=== PATIENT | female | born 1980 | race Caucasian/White ===

== ENCOUNTER 2025-02-21 13:44 | Outpatient (AMB) | payer OTHER, SELFPAY ==
--- NOTE | 2025-02-21 14:06 | A.OFFVIS_ITS ---
Vital Signs 02/21/25 14:08 Height 5 ft 3 in Weight 277 lb 2 oz BMI 49.1 Pulse 68 Pulse Source Pulse Oximeter Pulse Oximetry (%) 97 Oxygen Delivery Method Room Air Intake Visit Reasons: ENP - CARMEN Intake Note: Patient presents RADIO REPAIRMAN CARMEN. Loud snoring, witnessed apnea, some orthopnea and migraines. no hx sleep study. Accompanied by: Spouse Allergies nut - unspecified Allergy (Unknown, Verified 02/21/25 14:09) Itching HPI Comments Details: 44 year old female patient here for evaluation of CARMEN she is referred to us by her primary care provider. Gabe her helps with history. She is not sleeping well, wakes up through the night, her notices she pauses for air and gasps. She feels chronically fatigued and snores mildly. She goes to bed at 10pm and wakes up at 6am, with 2-3 arousals, one bathroom break. She will occasionally cry in her sleep, and denies parasomnias. She has bilateral frontal ethmoid sinus headaches, which start in the back of her neck, and radiate to the temporal areas. The pain is a constant throbbing and severe 6-7/10, lingers behind eyes and forehead all day, she takes and Ibuprofen and it improves mildly. She has dizziness,photophobia/ phonophbia, denies auras,triggers such as smells, and denies n/v vertigo. She takes Omeprazole for GERD. She denies RLS symptoms. Memory is stable. 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 She does not drink alcohol, smoke tobacco, vape and or do edibles. [facility] Medical History Headache GERD (gastroesophageal reflux disease) Severe obesity Moderate recurrent major depression Generalized anxiety disorder Surgical History Hx of cholecystectomy Family History Mother AA (alcohol abuse) Father HTN (hypertension) Social History Alcohol intake: former Patient Tobacco Use Status: Never used Tobacco e-Cigarette/Vaping Use: Never Used Physical Exam Vital Signs: Last Vital Signs Pulse 68 02/21/25 14:08 Pulse Ox 97 02/21/25 14:08 Oxygen Delivery Method Room Air 02/21/25 14:08 BMI result Body Mass Index 49.1 Const General: cooperative, comfortable and no acute distress Orientation/consciousness: patient oriented x3 Eyes Pupils: Equal, round and reactive pupils present Neck Neck: Yes full ROM Resp Effort & Inspection: normal respiratory effort and able to speak in complete sentences Neuro General: patient oriented x3 and moves all extremities Cranial nerves: Yes Facial sensation intact/muscles of mastication intact, Yes Equal, round and reactive pupils present, Yes Normal accommodation reflex present, Yes Normal facial strength present, Yes Midline tongue present, Yes Ability to bilaterally rotate head present and Yes Ability to bilaterally elevate shoulders present Cognition (Neuro): normal cognition Gait exam (Neuro): Normal gait present Motor exam (neuro): 5/5 motor strength present throughout and Normal motor muscle tone present throughout Deep tendon reflexes (DTR's): Right triceps reflex intensity grade: 2+, Left triceps reflex intensity grade: 2+, Rt Biceps (C5, C6): 2+, Left biceps reflex intensity grade: 2+, Right brachioradialis reflex intensity grade: 2+, Left brachioradialis reflex intensity grade: 2+, Right patellar reflex intensity grade: 2+, Left patellar reflex intensity grade: 2+, Right ankle reflex intensity grade: 2+ and Left ankle reflex intensity grade: 2+ Psych Appearance: grossly normal Affect: normal affect Thought process: Normal thought process present Thought content: Normal thought content present Assessment & Plan Assessment & Plan (1) Excessive daytime sleepiness: Code(s): G47.19 - Other hypersomnia Category: Medical (2) Bilateral headaches: Comment: sumatriptan 50mg po daily may take one additional tablet if no relieft w/in 2 hours of first dose. Code(s): R51.9 - Headache, unspecified Category: Medical (3) Anxiety: Code(s): F41.9 - Anxiety disorder, unspecified Category: Medical Plan Sleep difficulties HST to r/o CARMEN Headaches Sumatriptan - 50mg po at the onset of headache, may take one additional tablet of 50mg po w/in 2hours if their is no relief with the first dose. Do not exceed more than 100mg po daily. Anxiety continue sertraline 50mg po in the AM as directed by pcp Labs request from [facility] at [facility]. Orders: Orders RT home sleep study Today G47.19 - Other hypersomnia Medications: New sumatriptan succinate take 1 tab at onset of headache; if no relief may repeat 1 tab after at least 2 hrs; max = 4 tabs/24 hr orally; 12 tabs 0RF headaches 1 month MDD 100mg R51.9 - Headache, unspecified Patient Instructions: Sleep Hygiene provided: set a scheduled bedtime and wake time to help regulate the circadian rhythm and balance the release of pituitary hormones. Sleep in a dark room, temperatures below 68 degrees, and no devices n bed. Limit caffeinated products 6 hours prior to bed, and limit fluids 2-4 hours prior to bed. Gentle night yoga, diffusing essential oils, and playing soft music can be relaxing. Preventative migraine therapy CGRP antagonists: Sumatriptan at the acute onset of migraines. Triptans 1 tablets 50mg po at the onset of headache/ migraine. If migraine does not abort, may repeat one more tablet 2 hours later as needed. Do not exceed 2 tablets in a 24 hour period. Anxiety- Sertraline 50mg po daily as directed by pcp. Coding Level of Care Code New Pt Level 4 (09989) Diagnoses Excessive daytime sleepiness G47.19 Bilateral headaches R51.9 Anxiety F41.9 Time Spent (min) 30 Comment evaluation of CARMEN/ migraines Sleep Questionnaire Difficulty falling asleep: Yes Difficulty staying asleep?: Yes (takes melatonin 3mg) Number of arousals: 2-4 Snoring: Yes Witnessed apneas: Yes Gasping arousals: Yes Nocturia: Yes GERD: Yes (Omeprazole) Vivid dreams: No Acting out dreams: No Abnormal behavior in sleep: No Abnormal movements in sleep: No Morning headaches: Yes Excessive daytime sleepiness: Yes Daytime naps: Yes (1-2x week 1-2 hours) Restless legs: No Hallucinations: No Sleep paralysis: No Drop attacks: No Sleep Study: No CPAP: No
[2025-02-21 14:08] VITALS: PULSE 68; O2SAT 97; BMI 49.1
== END 2025-02-21 15:04 | disposition home or self-care (01) ==
LOC: HO.HSMS 13:44
PROVIDERS: Visit Provider Physician Assistant Medical
DX: G47.19 Other hypersomnia (principal); R51.9 Headache, unspecified; F41.9 Anxiety disorder, unspecified
CPT/HCPCS: 99204

== ENCOUNTER → 2025-03-10 15:13 | Outpatient (REF) | payer OTHER, SELFPAY ==
--- OUTSIDE RECORDS SUMMARY | 2025-03-10 15:18 | XMS_ITS | Encounter Summary ---
Author Organization [facility] Address [address] [place] [address] Phone Care Team Providers Care Bird Trapper Name Role Phone Janine Crespo MD Unavailable [phone] Pcp, Unknown Primary Care Provider Unavailabl e Encounter Details Date Type Department Care Team (Late st Contact Info) Description 03/11/2023 Procedure Pass [facility], Ct Scan - [address] [address] Social History Tobacco Use Types Packs/Day Years Used Date Smoking Tobacco: Never Smokeless Tobacco: Never Alcohol Use Standard Drinks/Week Comments No 0 (1 standard drink = 0.6 oz pur e alcohol) Education Answer Date Recorded Are you interested in more education? Not on jessica e 12/06/2022 Are you concerned about learning? Not on file 12/06/2022 No 12/06/2022 No 12/06/2022 Digital Access Answer Date Recorded No 01/06/2023 No 01/06/2023 Reliable internet access at home? Not on file 01/06/2023 Device with a working camera? Not on file Intimate Partner Violence Answer Date R ecorded Are you denied basic needs s uch as food, clothing, or medical care? No 03/11/2023 In the past 12 months have y ou been in a relationship with a person who hurts, threatens, or tries to control you? No 03/11/2023 Are you denied basic needs s uch as food, clothing, or medical care? No 03/11/2023 In the past 12 months have y ou been in a relationship with a person who hurts, threatens, or tries to control you? No 03/11/2023 Comments Unknown Sex and Gender Information Value Date Recorded Sex Assigned at Female 05/27/2018 5:21 PM EDT Legal Sex Female 4:39 PM EST Gender Identity Female 05/27/2018 5:21 PM EDT Sexual Orientation Straight 07/11/2018 11 :43 PM EST documented as of this encounter Functional Status * Calculated C-SSRS Risk Score (Lifetime/Recent) Answer Date of Assessment Author No Risk Indicated 03/11/2023 6:21 AM EDT Ashly Wagoner RN * [place] Suicide Severity Rating Scale (Screener/Recent Self-Report) Question Answer Date of Assessment Author 1. Wish to be (Past 1 Month) No 03/11/2023 6:21 AM SAMANTHAT Sonido Alford RN 2. Non-Specific Active Suicidal Thoughts (Past 1 Month) No 03/11/2023 6:21 AM SAMANTHAT Sonido Alford RN 6. Suicidal Behavior (Lifetime) No 03/11/2023 6:21 AM SAMANTHAT Sonido Alford RN documented as of this encounter Plan of Treatment Not on file documented as of this encounter Visit Diagnoses Not on filedocumented in this encounter Care Teams Bird Trapper Relationship Specialty Start Date End Date Pcp, Unknown PCP - General 03/11/23 Janine Crespo MD [address] [place] [address], [address] [place] [address] [email or web address] Historical LMR Provider 05/27/17 documented as of this encounter Additional Source Comments The information contained in this document represents components of the legal health record. It is not the complete legal health record.[facility]
== END ==
LOC: HO.SL 15:13
PROVIDERS: Visit Provider Physician Assistant Medical
DX: G47.19 Other hypersomnia (principal); R06.83 Snoring
CPT/HCPCS: 95806

== ENCOUNTER → 2025-03-10 15:23 | Outpatient (BNV) | payer OTHER, SELFPAY | PROVIDERS: Visit Provider Psychiatry & Neurology Neurology | DX: G47.19 Other hypersomnia (principal) | CPT/HCPCS: 95806 ==

== ENCOUNTER 2025-04-15 08:21 | Outpatient (AMB) | payer OTHER, SELFPAY ==
--- OUTSIDE RECORDS SUMMARY | 2025-04-15 08:45 | XMS_ITS | Encounter Summary ---
Author Organization [facility] Address [address] [place] [address] Phone Care Team Providers Care Cableway Operator Name Role Phone Janine Crespo MD Unavailable [phone] Pcp, Unknown Primary Care Provider Unavailabl e Encounter Details Date Type Department Care Team (Late st Contact Info) Description 03/11/2023 Procedure Pass [facility], Ct Scan - [address] [address] Social History Tobacco Use Types Packs/Day Years [...] 6:21 AM EDT Ashly Wagoner RN * [place] Suicide Severity Rating Scale (Screener/Recent Self-Report) Question [...] on filedocumented in this encounter Care Teams Cableway Operator Relationship Specialty Start Date End Date Pcp, Unknown PCP - General 03/11/23 Janine Crespo MD [address] [place] [address], [address] [place] [address] [email or web address] Historical LMR Provider 05/27/17 documented as of this encounter Additional Source Comments The information contained in this document represents components of the legal health record. It is not the complete legal health record.[facility]
--- OUTSIDE RECORDS SUMMARY | 2025-04-15 08:45 | XMS_ITS | Clinical Summary ---
Author Organization [facility] Address [address] [place] [address] Phone Care Team Providers Care Auto Tune Up Mechanic Name Role Phone Janine Crespo MD Unavailable [phone] Pcp, Unknown Primary Care Provider Unavailabl e Allergies Active Allergy Reactions Criticality Noted Date Comments Oxycodone-Acetaminophen Dizziness,Nausea and/or Vomiting 03/11/2023 Medications medroxyPROGESTERone (PROVERA) 10 MG tablet Take 1 tablet by mouth daily. Active ibuprofen (ADVIL,MOTRIN) 600 MG tablet 1 tablet Orally every 6 hrs 7 Active cyclobenzaprine (FLEXERIL) 10 MG tablet Take 1 tablet (10 mg total) by mouth 3 (three) times a day as needed for muscle spasms. 20 tablet 8 Active ondansetron (ZOFRAN-ODT) 4 MG disintegrating tablet Take 1 tablet (4 mg total) by mouth every 8 (eight) hours as needed for nausea. 12 tablet 3 Active neomycin-polymyxin B-hydrocortisone (CORTOMYCIN) 3.5-10,000-1 mg/mL-unit/mL-% otic suspension 3 drops by Each Ear route 4 (four) times a day. 10 mL 4 Active Active Problems No known active problems Family History Medical History Relation Comments CV disease Maternal Grandfather 2 Cancer Maternal Grandfather 2 CV disease Paternal Grandfather 2 Relation Status Comments Maternal Grandfather 1 Maternal Grandfather 2 Paternal Grandfather 1 Paternal Grandfather 2 Social History Tobacco Use Types Packs/Day Years Used Date Smoking Tobacco: Never Smokeless Tobacco: Never Tobacco Cessation:Counseling Given: Not Answered Alcohol Use Standard Drinks/Week Comments No 0 [...] Orientation Straight 07/11/2018 11 :43 PM EST Last Filed Vital Signs Vital Sign Reading Time Taken Comments Blood Pressure 142/81 01/18/2024 2:05 PM EDT Pulse 92 01/18/2024 2:05 PM EDT Temperature 37.1 C (98.8 F) 01/18/2024 2:05 PM EDT Respiratory Rate 16 01/18/2024 2:05 PM EDT Oxygen Saturation 96% 01/18/2024 2:05 PM EDT Inhaled Oxygen Concentration - - Weight 122.5 kg (270 lb) 01/18/2024 2:05 PM EDT Height 160 cm (5' 3 ) 01/18/2024 2:05 PM EDT Body Mass Index 47.83 01/18/2024 2:05 PM EDT Plan of Treatment Health Maintenance Due Date Last Done Comments DEPRESSION SCREENING 1993 HEPATITIS C SCREENING 1999 HIV ONE-TIME SCREENING (18-6 5 YEARS) 1999 PAP SMEAR 09/07/2018 09/07/2015 SCREENING FOR DIABETES 05/27/2021 05/27/2018 MAMMOGRAM 2021 Adult Td,Tdap Booster 04/13/2023 04/13/2013 , 12/12/1995, 04/13/1993 COVID-19 VACCINE (3 - 2023-2 5 season) 2024 01/08/2021, 12/11/2020 INFLUENZA VACCINE (#1) 2025 4, 10/19/2013 HIB VACCINES Completed 04/20/1985 SMOKING STATUS SCREENING (On ce After 26 Yrs) Completed 01/18/2024 HEPATITIS A VACCINES Aged Out No long er eligible based on patient's age to complete this topic MENINGOCOCCAL VACCINES (ACWY) Aged Out No longer eligible based on patient's age to complete this topic MENINGOCOCCAL VACCINES (B) Aged Out N o longer eligible based on patient's age to complete this topic PNEUMOCOCCAL VACCINES (0-49 years) Aged Out No longer eligible b ased on patient's age to complete this topic Medical Devices Not on [place] [id number] [facility] [employer]EF[employer] ADMINISTRATORS [facility] [place] [phone] [facility] [place] [employer]MINISTRAT[employer] [facility] ADMINISTRATORS [facility] ADMINISTRATORS Care Teams Auto Tune Up Mechanic Relationship Specialty Start Date End Date Pcp, Unknown PCP - General 03/11/23 Janine Crespo MD [address] [place] [address], [address] [place] [address] [email or web address] Historical LMR Provider 05/27/17 Additional Source Comments The information contained in this document represents components of the legal health record. It is not the complete legal health record.[facility]
--- NOTE | 2025-04-15 11:15 | MHC.OFFVISWM ---
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 Allergies nut - unspecified Allergy (Unknown, Verified 04/15/25 11:16) Itching Medication List - Last Reconciled 04/15/25 by Jacob Spencer MD magnesium 250 mg PO DAILY melatonin 3 mg PO BEDTIME PRN sertraline 50 mg PO DAILY sumatriptan succinate take 1 tab at onset of headache; if no relief may repeat 1 tab after at least 2 hrs; max = 4 tabs/24 hr orally; 1 month MDD 100mg HPI 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: Details: Start time: 11.07am, End time: 11.47am ?I spent 35 minutes speaking with the patient on the phone plus an additional 5 minutes reviewing and updating records for a total of 40 minutes HPI Comments Details: Previous weight loss efforts: self diet, exercise Wakes up: 10am, Sleeps: 2am Breakfast: skips Lunch: more often skips Dinner: 8-9pm (fish, or chicken, burgers, hot dogs) Snacks: 4 times before dinner (chips, salty foods), snacks after dinner once (popcorn, cookies, ice cream) Exercise: none Beverages: Coffee: (1 cup/d with creamer), Tea: Hot tea (1 cup/d plain), Soda: none, Juice: none, ETOH: none PFSH Medical History (Updated 04/15/25 @ 11:19 by Jacob Spencer MD) Insomnia Morbid obesity Headache GERD (gastroesophageal reflux disease) Severe obesity Moderate recurrent major depression Generalized anxiety disorder Surgical History (Updated 03/14/25 @ 14:22 by Soledad Hogan CMA) Hx of breast biopsy Hx of cholecystectomy Family History Mother AA (alcohol abuse) Father HTN (hypertension) Social History Alcohol intake: former Patient Tobacco Use Status: Never used Tobacco e-Cigarette/Vaping Use: Never Used Telehealth Telehealth Telehealth Platform: Telephone Location of provider rendering services: practice address Location of patient: address on file Patient Identification confirmed using: Name, : Yes Telehealth method: voice only Patient verbally consented to treatment: Yes Patient verbally consented to billing insurance company: Yes Patient informed of any privacy concerns related to visit: Yes Minutes spent on Phone/Video with Pt.: 40 Assessment & Plan Assessment & Plan (1) Morbid obesity: Code(s): E66.01 - Morbid (severe) obesity due to excess calories Category: Medical Plan: 1.? Plan for lap sleeve gastrectomy. If diaphragmatic or ventral hernias are present at time of surgery, these will be repaired laparoscopically as well. I emphasized the importance of close follow-up, adherence to instructions and good communication. The surgery does not replace the need to change your lifestlyle which is the cause of the obesity problem. The surgery provides the motivation to try again to change your lifestyle, it reduces the appetite and make the transition to a better lifestyle easier and doubles the amount of weight you would lose compared to doing the lifestyle change without the surgery. You will need to be on a liquid diet with protein shakes for 2 weeks before surgery to maximize weight loss and boost your nutritional status to recover better from surgery and also for the first two weeks after surgery to let the stomach heal before we introduce other foods. After the first 2 weeks we will introduce protein bars and soft foods like scrambled eggs, cottage cheese and yogurt and after the 6th week will introduce meat, fish and cooked vegetables in small amounts. Over time you should be able to eat everything in small amounts. Side effects like nausea, vomiting, heartburn or abdominal pain are not common in the practice unless you are not following in the practice. This operation requires lifetime commitment to following in our practice and communication with me. You will much less weight and experience side effects if you don?t communicate or not following in the practice. Complications are rare and in our practice is about 1/10 of the national average. However, you can develop bleeding that may require transfusion (hasn?t happened for year in the practice), you may from complications (we did not have any deaths in the practice) and infections. Infections are usually a result of breakdown in communication or not understanding or following directions correctly. They are difficult to treat, they can happen during the first 6 weeks, they may require to be in the hospital for weeks or even months, not being able to eat by mouth and you may have drains and surgeries to try and correct the issue. Other risks and complications include possible conversion to an open procedure, leaks, small bowel obstruction, blood clots, cardiac, or pulmonary complications, as group home complications such as ulcers, insufficient weight loss and vitamin deficiencies. 2. Nutritional counseling. Start with one premade PREMIER protein (buy at [employer] or American [employer] Addiction [employer] (ABAM)) shake (8oz of Premier NOT the whole bottle) at 11am-1pm, one protein bar (Fit Crunch protein bar, buy at American [employer] Addiction [employer] (ABAM), or [employer]) at 2pm-4pm, another premade PREMIER protein shake (8oz of Premier NOT the whole bottle) at 5pm-7pm, dinner at 8pm (10 forks of protein and 10 forks of salad/vegetables), another Fit Crunch protein bar at 1pm to midnight and another HALF Fit Crunch protein bar at 1am-2am. So you do 2 protein shakes, 2.5 protein bars and one meal per day. Meal to include lean meat (beef, fish, pork, turkey, chicken), or [place] yogurt, or egg whites, or beans with a salad with olive oil and fruits (berries, pears, apples, kiwi). Avoid salt, breads, potatoes, rice, pasta, desserts. 3. Each shake would be drunk slowly, like coffee in a period of 2 hours. 4. Cut each bar in 4 pieces and eat each piece in 30min ?to make each bar last 2 hours. 5. I emphasized the importance of measuring accurately the food portion and measure it when serving the food in plate 6. The meal portions include 10 full-size forks of meat and 10 full-size forks of salad. You always eat the meat portion but you can replace up to 5 forks for salad/vegetables with rice, potatoes or pasta, or a fruit ?if you like. The less you do it the better weight loss will be. 7. One full-size fork is what it can be scooped on the fork without falling aside and not what can be bit with the fork. Use regular forks like those you find in a typical restaurant. 8.? Please buy the body composition scale we discussed and send me weight measurements as soon as possible and then once a week. Always include your diet and exercise plan. 9. Start walking outside daily, tracking calories with a goal of 300 calories per day, daily. Goal is to burn 2000 calories per week on exercise, which means either 300 calories daily, or 400 calories 5 days per week, or 500 calories 4 days per week, or 650 calories 3 days per week. 10. The best choice would be to purchase a stationary bike at home that can track calories. If you get one, please start stationary bike at a resistance level of 2.0 Increase level by 1.0 every 3 min to a max level of 8.0. Stay at this level for 3 min and then return to level 2.0 and repeat same steps until 300 calories are burned. Goal is to burn 2000 calories per week on exercise 11.?It is important of avoiding and for at least 18 months postoperatively and has been discussed at the infosession. 12. Goal is to lose at least 1.5-2lbs per week 13. Goal to lose 10% of your weight before surgery, which is about 29lbs. Ultimate weight goal: 250lbs before surgery 14. Please follow the diet plan exactly without any change. If you don't like something about the plan or you feel hungry you need to communicate with me so I can help you revise the plan. You should not change the plan yourself 15. To be scheduled for EGD to assess the stomach's anatomy. The possibility of biopsies was discussed. Patient needs to avoid use of NSAIDs and aspirin for 1 week prior to EGD. You must be on liquids only the day before your endoscopy. Risks of perforation and bleeding was discussed with the patient. This will be an outpatient procedure with IV sedation. 16. Please do the following test: Check your heart rate at rest (at your sleep). Walk for exactly one mile distance as fast as you can and check your heart rate again as soon as you complete the mile walk. Text me the heart rate at rest and after the walk and the time in minutes and seconds that took you to complete the mile walk. You can use your smartphone's stopwatch to track accurately the time it took to walk the mile. Orders: Orders Insulin Today E66.01 - Morbid (severe) obesity due to excess calories, K21.9 - Gastro-esophageal reflux disease without esophagitis H Pylori Breath Test Today E66.01 - Morbid (severe) obesity due to excess calories, K21.9 - Gastro-esophageal reflux disease without esophagitis Lipid Panel Today E66.01 - Morbid (severe) obesity due to excess calories, K21.9 - Gastro-esophageal reflux disease without esophagitis IRON PROFILE Today E66.01 - Morbid (severe) obesity due to excess calories, K21.9 - Gastro-esophageal reflux disease without esophagitis Vitamin B12 and Folate Today E66.01 - Morbid (severe) obesity due to excess calories, K21.9 - Gastro-esophageal reflux disease without esophagitis Vitamin B1 Today E66.01 - Morbid (severe) obesity due to excess calories, K21.9 - Gastro-esophageal reflux disease without esophagitis Vitamin D 25-OH Total Today E66.01 - Morbid (severe) obesity due to excess calories, K21.9 - Gastro-esophageal reflux disease without esophagitis XR chest 2V Today E66.01 - Morbid (severe) obesity due to excess calories, K21.9 - Gastro-esophageal reflux disease without esophagitis Hemoglobin A1c Today E66.01 - Morbid (severe) obesity due to excess calories, K21.9 - Gastro-esophageal reflux disease without esophagitis Complete Blood Count Auto Diff Today E66.01 - Morbid (severe) obesity due to excess calories, K21.9 - Gastro-esophageal reflux disease without esophagitis Comprehensive Met. Panel Today E66.01 - Morbid (severe) obesity due to excess calories, K21.9 - Gastro-esophageal reflux disease without esophagitis Zinc Today E66.01 - Morbid (severe) obesity due to excess calories, K21.9 - Gastro-esophageal reflux disease without esophagitis C Reactive Protein Today E66.01 - Morbid (severe) obesity due to excess calories, K21.9 - Gastro-esophageal reflux disease without esophagitis Vitamin A Today E66.01 - Morbid (severe) obesity due to excess calories, K21.9 - Gastro-esophageal reflux disease without esophagitis TSH reflex Free T4 Today E66.01 - Morbid (severe) obesity due to excess calories, K21.9 - Gastro-esophageal reflux disease without esophagitis Ferritin Today E66.01 - Morbid (severe) obesity due to excess calories, K21.9 - Gastro-esophageal reflux disease without esophagitis US abdomen comp w elastography Today E66.01 - Morbid (severe) obesity due to excess calories, K21.9 - Gastro-esophageal reflux disease without esophagitis ECG 12 lead EKG Today E66.01 - Morbid (severe) obesity due to excess calories, K21.9 - Gastro-esophageal reflux disease without esophagitis FL upper GI w air Today E66.01 - Morbid (severe) obesity due to excess calories, K21.9 - Gastro-esophageal reflux disease without esophagitis Referrals Behavioral Health Referral E66.01 - Morbid (severe) obesity due to excess calories, K21.9 - Gastro-esophageal reflux disease without esophagitis Nutrition/Dietitian Referral E66.01 - Morbid (severe) obesity due to excess calories, K21.9 - Gastro-esophageal reflux disease without esophagitis
[2025-04-15 11:26] VITALS: BMI 49.5
== END 2025-04-15 11:48 | disposition home or self-care (01) ==
LOC: HO.HBS 08:21
PROVIDERS: Visit Provider Surgery
DX: E66.01 Morbid (severe) obesity due to excess calories (principal); Z68.42 Body mass index [BMI] 45.0-49.9, adult
CPT/HCPCS: 99203

== ENCOUNTER → 2025-04-15 08:21 | Outpatient (BNVA) | payer OTHER, SELFPAY | PROVIDERS: Visit Provider Surgery | DX: E66.01 Morbid (severe) obesity due to excess calories (principal); Z68.42 Body mass index [BMI] 45.0-49.9, adult; K21.9 Gastro-esophageal reflux disease without esophagitis ==

== ENCOUNTER 2025-04-19 12:13 | Outpatient (REF) | payer OTHER, SELFPAY ==
--- NOTE | ~2025-04-19 | XR_ITS ---
EXAMINATION: XR CHEST 2 VIEWS HISTORY: E66.01 - Morbid (severe) obesity due to excess calories COMPARISON: There are no prior studies available for comparison. FINDINGS: PA and lateral views of the chest are submitted. The lungs are expanded and clear. There is no pleural effusion, pneumothorax, or pulmonary vascular congestion. The heart is normal in size. There is mild degenerative disc disease of the spine. XR/XR chest 2V IMPRESSION: Clear lungs. Electronically signed by: El Galan MD 04/19/2025 01:13 PM EDT
--- NOTE | 2025-04-19 12:39 | ECG_ITS ---
Test Reason : MORBID OBESITY Blood Pressure : */* mmHG Vent. Rate : 63 BPM Atrial Rate : 63 BPM P-R Int : 138 ms QRS Dur : 82 ms QT Int : 402 ms P-R-T Axes : 20 46 51 degrees QTcB Int : 411 ms Normal sinus rhythm Normal ECG No previous ECGs available Referred By: Jacob Spencer Electronically Signed By: ANIBAL DAVIS MD
[2025-04-19 12:43] LABS: MANUAL DIFF FLAG NO
[2025-04-19 12:55] LABS: Hematocrit 44.2 % (37.0-47.0); Hemoglobin 14.7 g/dl (12.0-16.0); Imm Gran Abs Auto 0.04 X10*3/uL (0.00-0.03); Imm Gran Pct Auto 0.5 % (0.0-0.4); Lymphocytes Absolute Auto 3.4 X10*3/uL (1.2-4.9); Mean Corpuscular HGB Conc 33.3 g/dl (31.0-35.0); Mean Corpuscular Hemoglobin 29.9 pg (27.0-33.0); Mean Corpuscular Volume 90.0 fL (80.0-98.0); NRBC Abs Auto 0.000 X10*3/uL (0.0-0.012); NRBC Pct Auto 0.0 /100WBC (0.0-0.2); Platelet Count 422 X10*3/uL (160-400); Red Blood Count 4.91 X10*6/uL (4.20-5.50); White Blood Count 8.4 X10*3/uL (4.8-10.8)
[2025-04-19 12:58] LABS: Hemoglobin A1C 145.4138 umol/L; Total Hemoglobin (HGBA1C) 3656.0531 umol/L
[2025-04-19 13:27] LABS: Alanine Aminotransferase 31 U/L (0-31); Albumin Level 4.6 g/dL (3.5-5.0); Alkaline Phosphatase 91 U/L (39-117); Anion Gap 13 (12-20); Aspartate Amino Transferase 34 U/L (5-31); Blood Urea Nitrogen 20 mg/dL (9-16); Calcium 9.2 mg/dL (8.4-10.2); Carbon Dioxide 22 mmol/L (22-29); Chloride 109 mmol/L (96-108); Cholesterol 200 mg/dL (<200); Estimated Glomerular Filt Rate > 60; HDL Cholesterol 39 mg/dL (>40); Iron 91 mcg/dL (30-160); Percent Iron Saturation 34 % (15-50); Potassium 4.6 mmol/L (3.3-5.1); Sodium 139 mmol/L (135-145); Total Iron Binding Capacity 264 mcg/dL (228-428); Total Protein 7.6 g/dL (6.5-8.0); Triglycerides 151 mg/dL (<150); Unsaturated Iron Binding 173 ug/dL
[2025-04-19 13:57] LABS: Folate 14.1 ng/mL (> or = 4.0); Vitamin B12 406 pg/mL (200-900)
[2025-04-19 14:17] LABS: Ferritin 288 ng/mL (10-250)
--- OUTSIDE RECORDS SUMMARY | 2025-04-19 14:40 | XMS_ITS | Clinical Summary ---
Author Organization [facility] Address [address] [place] [address] Phone Care Team Providers Care Hand Inspector Name Role Phone Janine Crespo MD Unavailable [phone] Pcp, Unknown Primary Care Provider Unavailabl e [...] topic Medical Devices Not on [place] [id number] [facility] [employer] ADMIN[employer]ATORS [facility] [place] [address] [facility] [place] [employer] ADMINISTRATORS [employer] [facility] ADMINISTRATORS [facility] ADMINISTRATORS Care Teams Hand Inspector Relationship Specialty Start Date End Date Pcp, Unknown PCP - General 03/11/23 Janine Crespo MD [address] [place] [address], [address] [place] [address] [email or web address] Historical LMR Provider 05/27/17 Additional Source Comments The information contained in this document represents components of the legal health record. It is not the complete legal health record.[facility] Case
--- OUTSIDE RECORDS SUMMARY | 2025-04-19 14:40 | XMS_ITS | Encounter Summary ---
Author Organization [facility] Address [address] [place] [id number] Phone Care Team Providers Care Production Staff Worker Name Role Phone Janine Crespo MD Unavailable [phone] Pcp, Unknown Primary Care Provider Unavailabl e Encounter Details Date Type Department Care Team (Late st Contact Info) Description 03/11/2023 Procedure Pass [facility], Ct Scan - [address] [address] Social History Tobacco Use Types Packs/Day Years [...] 6:21 AM EDT Ashly Wagoner RN * [place] Suicide Severity Rating Scale (Screener/Recent Self-Report) Question [...] on filedocumented in this encounter Care Teams Production Staff Worker Relationship Specialty Start Date End Date Pcp, Unknown PCP - General 03/11/23 Janine Crespo MD [address] [place] [address], [address] [place] [address] [email or web address] Historical LMR Provider 05/27/17 documented as of this encounter Additional Source Comments The information contained in this document represents components of the legal health record. It is not the complete legal health record.[facility]
== END 2025-04-19 12:14 | disposition home or self-care (01) ==
LOC: HO.XRAY 12:13
PROVIDERS: PCP Nurse Practitioner Family; Visit Provider Surgery
DX: E66.01 Morbid (severe) obesity due to excess calories (principal); K21.9 Gastro-esophageal reflux disease without esophagitis; Z13.1 Encounter for screening for diabetes mellitus; Z13.0 Encounter for screening for diseases of the blood and blood-forming organs and certain disorders involving the immune mechanism; Z13.29 Encounter for screening for other suspected endocrine disorder; Z13.21 Encounter for screening for nutritional disorder
CPT/HCPCS: 36415; 71046; 80053; 80061; 82306; 82607; 82728; 82746; 83036; 83525; 83540; 84425; 84443; 84590; 84630; 85025; 86140; 93005

== ENCOUNTER → 2025-04-19 12:39 | Outpatient (BNV) | payer OTHER, SELFPAY | PROVIDERS: PCP Nurse Practitioner Family; Visit Provider Internal Medicine Cardiovascular Disease | DX: E66.01 Morbid (severe) obesity due to excess calories (principal) | CPT/HCPCS: 93010 ==

== ENCOUNTER → 2025-04-19 12:48 | Outpatient (BNV) | payer OTHER, SELFPAY | PROVIDERS: PCP Nurse Practitioner Family; Visit Provider Radiology Diagnostic Radiology | DX: E66.01 Morbid (severe) obesity due to excess calories (principal) | CPT/HCPCS: 71046 ==

== ENCOUNTER 2025-04-25 09:01 | Day surgery (SDC) | payer OTHER, SELFPAY ==
--- NOTE | 2025-04-21 15:39 | HO.ANESPROP2 ---
Documented by User: Lucy Rome NP 04/21/25 15:40 HPI - Anesthesia Eval Consult details Narrative: 44yo F for Upper Endoscopy BMI 49 PMFSH Active Problems Active Problems: All Active Problems Insomnia (Acute) GERD (gastroesophageal reflux disease) (Acute) Morbid obesity (Acute) Anxiety (Acute) Excessive daytime sleepiness (Acute) Bilateral headaches (Acute) Past Medical History Medical History Insomnia Morbid obesity Headache GERD (gastroesophageal reflux disease) Severe obesity Moderate recurrent major depression Generalized anxiety disorder Family History Family History Mother AA (alcohol abuse) Father HTN (hypertension) Surgical History Surgical History Hx of breast biopsy Hx of cholecystectomy Social History Social History Alcohol intake: former Patient Tobacco Use Status: Never used Tobacco e-Cigarette/Vaping Use: Never Used Advance Directives: No Advance Directives Information Provided: Yes Meds Allergies Allergy/AdvReac Type Severity Reaction Status Date / Time nut - unspecified Allergy Unknown Itching Verified 04/25/25 09:06 Home Medications ?Medication ?Instructions ?Recorded ?Confirmed ?Last Taken ?Type sertraline 50 mg tablet 50 mg PO DAILY 02/14/25 04/25/25 Unknown History magnesium 250 mg tablet 250 mg PO DAILY 03/14/25 04/25/25 Unknown History melatonin 3 mg capsule 3 mg PO BEDTIME PRN Sleep 03/14/25 04/25/25 Unknown History Assessment and Plan Assessment Anesthesia Assessment: Chart Reviewed Documented by User: Sara Du MD 04/25/25 09:12 PMFSH Past Medical History Medical History Insomnia Morbid obesity Headache GERD (gastroesophageal reflux disease) Severe obesity Moderate recurrent major depression Generalized anxiety disorder Family History Family History Mother AA (alcohol abuse) Father HTN (hypertension) Family history of problems with anesthesia: No Surgical History Surgical History Hx of breast biopsy Hx of cholecystectomy History of Problems with Anesthesia: No Social History Social History Alcohol intake: former Patient Tobacco Use Status: Never used Tobacco e-Cigarette/Vaping Use: Never Used Advance Directives: No Advance Directives Information Provided: Yes Meds Allergies Allergy/AdvReac Type Severity Reaction Status Date / Time nut - unspecified Allergy Unknown Itching Verified 04/25/25 09:06 Home Medications ?Medication ?Instructions ?Recorded ?Confirmed ?Last Taken ?Type sertraline 50 mg tablet 50 mg PO DAILY 02/14/25 04/25/25 Unknown History magnesium 250 mg tablet 250 mg PO DAILY 03/14/25 04/25/25 Unknown History melatonin 3 mg capsule 3 mg PO BEDTIME PRN Sleep 03/14/25 04/25/25 Unknown History Exam Airway Mallampati Class: II TM Dist: >3cm Neck ROM: Full Heart: rrr Lungs: cta Assessment and Plan Assessment Anesthesia Assessment: Anesthesia Plan Discussed Final Anesthetic Review Family History of Problems with Anesthesia: No History of Problems with Anesthesia: No NPO: Yes ASA Class: III Final Preanesthetic Review: No Changes in Pt Med Stat, Meds/Allgs Chart Reviewed and Consent Obtained/Reviewed Patient Risk: Intermediate Procedure Risk: Intermediate Anesthetic Plan Anesthetic Plan: MAC: Disposition: Standard PACU
[2025-04-25 09:12] VITALS: BMI 47.7
[2025-04-25 09:19] VITALS: BP 142/76; PULSE 77; RESP 14; TEMP 36.5; O2SAT 95
[2025-04-25] MEDS: Lactated Ringers 1,000 ML 80 ML IVCONT (09:28)
--- NOTE | 2025-04-25 09:34 | P.HPSUR_ITS ---
Pre-Procedural Eval Section A - 24 Hr Update-Section A only Date of Service: 04/25/25 The patient is an INPATIENT: No The patient has been examined within 24 hours of the surgical procedure. The History & Physical has been completed within 30 days and I have reviewed it.: Yes Section B - Complete if H&P > 30 days Chief Complaint: Morbid (severe) obesity due to excess calories Details of Present Illness: GERD Relevant Family History (Specify if Yes): No Relevant Social History: None Present Medications: None Medical History: No relevant PMH History of Previous Operations: No relevant previous surgery Allergies: Allergies Allergy/AdvReac Type Severity Reaction Status Date / Time nut - unspecified Allergy Unknown Itching Verified 04/25/25 09:06 Review of Systems Sugical H&P ROS: Negative: Constitution, Cardiovascular, Respiratory, Neurological, Psychiatric, Hem-Onc, Allergic/Immunologic, Gastrointestinal, Genitourinary, Musculoskeletal, Integumentary, Endocrine and Eyes/Ears/No se/Throat Exam Surgical H&P Exam: Normal: HEENT, Normal: Heart, Normal: Lungs, Normal: Extremities, Normal: Abdomen, Normal: Skin and Normal: Neurological Plan Diagnosis/Plan: Unchanged (EGD to assess etiology of GERD. Risks of bleeding and perforation were discussed with the patient and she is in agreement with the plan.) I have reviewed the history and physical and performed a pertinent physical examination on my patient. No changes have occurred unless specified. Time Spent With Patient Time: Total time managing care of this patient today ____ minutes.
--- NOTE | 2025-04-25 09:35 | P.BOP_ITS ---
Brief Operative Note Date of Service: 04/25/25 Pre-op diagnosis: GERD Post-op diagnosis: same Procedure: PROCEDURE DATE: 04/25/2025 PREOPERATIVE DIAGNOSIS: GERD POSTOPERATIVE DIAGNOSIS: ?Same as above.1) Esophagitis, 2) moderate size fixed diaphragmatic hernia PROCEDURE: [id number] with biopsies Surgeon: ?Juanjose Spencer M.D.. Ph.D. Software Tools Engineer: None ? Anesthesia: IV sedation Estimated blood loss: ?Minimal FINDINGS AND PROCEDURE: ? OPERATIVE INDICATIONS: ?The patient is a 44 year old female known to me who is interested in bariatric surgery. The patient has GERD. Based on this information I recommended an upper endoscopy to evaluate the patient's symptoms. Risks and complications of the surgery were discussed with the patient in advance particularly the possibility of perforation or bleeding that may require surgical intervention. The patient understood the risks and was in agreement with the plan. ? PROCEDURE: After informed consent was obtained by the patient, the patient was ?transferred to the Operating Room and was placed in the supine position.? After successful induction of IV sedation, a mouth block was inserted and the patient was placed in the left lateral decubitus position. An upper endoscopy was performed next, the oropharynx and esophagus appeared within the normal limits. There was 3-4cm fixed hiatal hernia. The z-line was irregular with tongues of gastric mucosa protruding into the esophagus. Two biopsies were obtained from the distal esophagus 2-3 cm proximal to the GE junction and two additional biopsies from the GE junction. The stomach was entered and it appeared to be of normal size. There was no gastritis. There was no stricture or ulcer. A biopsy was obtained from the gastric fundus and the antrum. No significant bleeding was noted from any of the biopsy sites. Retroflexion of the scope confirmed the presence of a diaphragmatic hernia. The scope was then advanced into the duodenum which appeared to be normal as well. At that point the duodenum ?and the stomach were decompressed and the scope was withdrawn from the patient's mouth. The patient extubated and was transferred in stable condition to the Recovery Room for further care. I was present and performed all steps of the procedure. There were no residents to assist with this case. Juanjose Spencer M.D., Ph.D. Surgeon: Jacob Spencer MD Anesthesia: MAC Was an Software Tools Engineer used for this Procedure?: No Estimated blood loss (mL): 0 IV fluids (mL): 400 Urine output (mL): 0 (No Snell to record output) Pathology: other (1) antrum x1, 2) fundus x1, 3) GE junction x2, 4) distal esophagus x2) Condition: stable Disposition: PACU
[2025-04-25 09:36] LABS: UPreg QC Valid YES
[2025-04-25 10:06] VITALS: BP 98/58; PULSE 93; RESP 18; TEMP 36.2; O2SAT 94
[2025-04-25 10:21] VITALS: BP 105/52; PULSE 80; RESP 18; TEMP 36.5; O2SAT 94
== END 2025-04-25 11:04 | disposition home or self-care (01) ==
PROVIDERS: Nurse Practitioner; PCP Nurse Practitioner Family; Visit Provider Surgery
PROC: 0DJ08ZZ Inspection of Upper Intestinal Tract, Via Natural or Artificial Opening Endoscopic (ICD-10-PCS; CPT 43235; principal; 2025-04-25 12:10)
DX: K21.9 Gastro-esophageal reflux disease without esophagitis (principal); E66.01 Morbid (severe) obesity due to excess calories; Z68.42 Body mass index [BMI] 45.0-49.9, adult; K31.7 Polyp of stomach and duodenum; K44.9 Diaphragmatic hernia without obstruction or gangrene; K20.80 Other esophagitis without bleeding; G47.00 Insomnia, unspecified; F33.1 Major depressive disorder, recurrent, moderate; F41.1 Generalized anxiety disorder; Z79.899 Other long term (current) drug therapy; Z91.018 Allergy to other foods; Z90.49 Acquired absence of other specified parts of digestive tract
CPT/HCPCS: 43239; 81025; 88305; 88313; 88342; J2003; J2704

== ENCOUNTER → 2025-04-25 09:01 | Outpatient (BNV) | payer OTHER, SELFPAY | PROVIDERS: PCP Nurse Practitioner Family; Visit Provider Surgery | DX: K21.9 Gastro-esophageal reflux disease without esophagitis (principal) | CPT/HCPCS: 43239 ==

== ENCOUNTER → 2025-04-29 19:30 | Outpatient (REF) | payer OTHER, SELFPAY ==
--- OUTSIDE RECORDS SUMMARY | 2025-04-29 21:42 | XMS_ITS | Encounter Summary ---
Author Organization [facility] Address [address] [place] [address] Phone Care Team Providers Care Automotive Wholesale Parts Advisor Name Role Phone Janine Crespo MD Unavailable [phone] Pcp, Unknown Primary Care Provider Unavailabl e Encounter Details Date Type Department Care Team (Late st Contact Info) Description 03/11/2023 Procedure Pass [facility], Ct Scan - [address] [address] Social History Tobacco Use Types Packs/Day Years [...] 6:21 AM EDT Ashly Wagoner RN * [place] Suicide Severity Rating Scale (Screener/Recent Self-Report) Question [...] on filedocumented in this encounter Care Teams Automotive Wholesale Parts Advisor Relationship Specialty Start Date End Date Pcp, Unknown PCP - General 03/11/23 Janine Crespo MD [address] [place] [address], [address] [place] [address] [email or web address] Historical LMR Provider 05/27/17 documented as of this encounter Additional Source Comments The information contained in this document represents components of the legal health record. It is not the complete legal health record.[facility]
--- OUTSIDE RECORDS SUMMARY | 2025-04-29 21:42 | XMS_ITS | Clinical Summary ---
Author Organization [facility] Address [address] [place] [id number] Phone Care Team Providers Care Chancellor Name Role Phone Janine Crespo MD Unavailable [phone] Pcp, Unknown Primary Care Provider Unavailabl e [...] topic Medical Devices Not on file Insurance [facility] [id number] [facility] B[employer]EF[employer] ADMIN[employer]RATORS [place] [id number] [facility] [employer] [facility] ADMINISTRATORS [facility] ADMINISTRATORS Care Teams Chancellor Relationship Specialty Start Date End Date Pcp, Unknown PCP - General 03/11/23 Janine Crespo MD [address] [place] [address], [address] [place] [address] [email or web address] Historical LMR Provider 05/27/17 Additional Source Comments The information contained in this document represents components of the legal health record. It is not the complete legal health record.[facility] Case
== END ==
LOC: HO.SL 19:30
PROVIDERS: Visit Provider Physician Assistant Medical
DX: G47.19 Other hypersomnia (principal)
CPT/HCPCS: 95810

== ENCOUNTER → 2025-04-29 21:37 | Outpatient (BNV) | payer OTHER, SELFPAY | PROVIDERS: Visit Provider Psychiatry & Neurology Neurology | DX: G47.33 Obstructive sleep apnea (adult) (pediatric) (principal) | CPT/HCPCS: 95810 ==

== ENCOUNTER 2025-06-01 09:31 | Outpatient (AMB) | payer OTHER, SELFPAY ==
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
== END 2025-06-01 11:04 | disposition home or self-care (01) ==
LOC: HO.HBST 09:32
PROVIDERS: Visit Provider Counselor Mental Health
DX: F43.23 Adjustment disorder with mixed anxiety and depressed mood (principal); F43.10 Post-traumatic stress disorder, unspecified; Z71.89 Other specified counseling
CPT/HCPCS: 90791

== ENCOUNTER 2025-06-06 15:26 | Outpatient (AMB) | payer OTHER, SELFPAY ==
[2025-06-06 15:29] VITALS: BP 130/82; PULSE 57; O2SAT 97; BMI 46.6
--- NOTE | 2025-06-06 15:29 | A.OFFVIS_ITS ---
Vital Signs 06/06/25 15:29 Height 5 ft 3 in Weight 263 lb 2 oz BMI 46.6 BP 130/82 Blood Pressure Location Lt brachial Position Sitting Pulse 57 Pulse Source Pulse Oximeter Pulse Oximetry (%) 97 Oxygen Delivery Method Room Air Intake Visit Reasons: 3mnth follow up Intake Note: Patient presents follow up CARMEN/Migraine medication. PSG in chart(AHI-22, CURT- 82%. APAP 5-20cm) Bookkeeping Machine Mechanic Required: No Accompanied by: Spouse Allergies nut - unspecified Allergy (Unknown, Verified 06/06/25 15:36) Itching HPI Comments Details: 44 year old female patient presents for a f/u visit and review of in-lab PSG. Gabe her helps with history. PSG reviewed with pt AHI-22, and oxygen nadirs to 82%. Start APAP [id number] and monitor for compliance. She is not sleeping well, wakes up through the night, her notices she pauses for air and gasps. Has 2 hours of sleep at best. She feels chronically fatigued and snores. She goes to bed at 10pm and wakes up at 6am, with 2-3 arousals and 1-3 bathroom breaks at night. She occasionally cries in her sleep, and denies parasomnias. She has daily headaches bilaterally which start at the frontal ethmoid sinuses, can start in the back of her neck, and radiate to the temporal areas with pressure. She has constant throbbing and severit of 6-7/10, this lingers behind her eyes and forehead all day. She takes an Ibuprofen and it improves mildly. She takes Sumatriptan 50mg and it improves though does not resolve completely. She has photophobia, phonophobia, denies auras, and triggers to smells, she denies dizzines, gait and balance instability, and denies n/v, vertigo. She has GERD which is managed with Omeprazole. She denies RLS symptoms. Memory is stable. Mood is improved with sertraline 25mg po. She had brain fog on the 50mg dose so tapered to 25mg which is better. She does not drink alcohol, smoke tobacco, vape and or do edibles. She is having a bariatric procedure on Jun 14 at [facility] [place] [place]. [facility] Medical History (Updated 06/06/25 @ 22:19 by yEal Dinero PA-C) Insomnia Morbid obesity Headache GERD (gastroesophageal reflux disease) Severe obesity Moderate recurrent major depression Generalized anxiety disorder Surgical History Hx of breast biopsy Hx of cholecystectomy Family History Mother AA (alcohol abuse) Father HTN (hypertension) Social History Are you a primary healthcare prof to a significant other at home: No Do you presently have visiting nurse or other home services: No Alcohol intake: former Patient Tobacco Use Status: Never used Tobacco e-Cigarette/Vaping Use: Never Used Physical Exam Vital Signs: Last Vital Signs Pulse 57 06/06/25 15:29 BP 130/82 06/06/25 15:29 Pulse Ox 97 06/06/25 15:29 Oxygen Delivery Method Room Air 06/06/25 15:29 BMI result Body Mass Index 46.6 Const General: cooperative, comfortable and no acute distress Orientation/consciousness: patient oriented x3 Eyes Pupils: Equal, round and reactive pupils present Neck Neck: Yes full ROM Resp Effort & Inspection: normal respiratory effort and able to speak in complete sentences Neuro General: patient oriented x3 and moves all extremities Cranial nerves: Yes Facial sensation intact/muscles of mastication intact, Yes Equal, round and reactive pupils present, Yes Normal accommodation reflex present, Yes Normal facial strength present, Yes Midline tongue present, Yes Ability to bilaterally rotate head present and Yes Ability to bilaterally elevate shoulders present Cognition (Neuro): normal cognition Gait exam (Neuro): Normal gait present Motor exam (neuro): 5/5 motor strength present throughout and Normal motor muscle tone present throughout Psych Appearance: grossly normal Affect: normal affect Thought process: Normal thought process present Thought content: Normal thought content present Results Reviewed Results Reviewed: PSG reviewed with pt AHI-22, and oxygen nadirs to 82%. Start APAP [id number] and monitor for compliance. Assessment & Plan Assessment & Plan (1) CARMEN on CPAP: Code(s): G47.33 - Obstructive sleep apnea (adult) (pediatric); Z99.89 - Dependence on other enabling machines and devices Category: Medical (2) Excessive daytime sleepiness: Code(s): G47.19 - Other hypersomnia Category: Medical (3) Bilateral headaches: Comment: sumatriptan 50mg po daily may take one additional tablet if no relieft w/in 2 hours of first dose. Code(s): R51.9 - Headache, unspecified Category: Medical (4) Anxiety: Code(s): F41.9 - Anxiety disorder, unspecified Category: Medical (5) Insomnia: Code(s): G47.00 - Insomnia, unspecified Category: Medical Qualifiers: Insomnia type: unspecified Qualified Code(s): G47.00 - Insomnia, unspecified Plan CARMEN - PSG reviewed with pt, she has moderate CARMEN will start her on cpap therapy and monitor for compliance. CPAP order is written today. Headaches Daily, discontinue Ibuprofen and continue sumatriptan 50mg po at the onset of headache, if headache does not resolve may take one additional tablet at 2 hours from the first dose. Do not exceed 200mg po in a 24hour period. Use a migraine cap, keep in freezer, monitor the frequency and severity of headaches will discuss Ubrelvy at next f/u. Obesity BMI is 46.6, upcoming Bariatrics surgery Jun 14 2025. Snoring ENT future consideration for [facility] evalution and or Sleep dentistry if snoring is not improved. Medications: Refilled sumatriptan succinate take 1 tab at onset of headache; if no relief may repeat 1 tab after at least 2 hrs; max = 4 tabs/24 hr orally; 12 tabs 0RF headaches 1 month MDD 100mg R51.9 - Headache, unspecified Patient Instructions: Sleep Hygiene provided: set a scheduled bedtime and wake time to help regulate the circadian rhythm and balance the release of pituitary hormones. Sleep in a dark room, temperatures below 68 degrees, and no devices n bed. Limit caffeinated products 6 hours prior to bed, and limit fluids 2-4 hours prior to bed. Gentle night yoga, diffusing essential oils, and playing soft music can be relaxing. Coding Level of Care Code Est Pt Level 4 (18568) Diagnoses CARMEN on CPAP G47.33; Z99.89 Excessive daytime sleepiness G47.19 Bilateral headaches R51.9 Anxiety F41.9 Insomnia, unspecified type G47.00 Insomnia type: unspecified
--- OUTSIDE RECORDS SUMMARY | 2025-06-06 18:38 | XMS_ITS | Clinical Summary ---
Author Organization [facility] Address [address] [place] [address] Phone Care Team Providers Care Dredge Master Name Role Phone Janine Crespo MD Unavailable [phone] Pcp, Unknown Primary Care Provider Unavailabl e [...] Td,Tdap Booster 04/13/2023 04/13/2013 , 12/12/1995, 04/13/1993 INFLUENZA VACCINE (#1) 2025 4, 10/19/2013 COVID-19 VACCINE (3 - 2024-2 6 season) 2025 01/08/2021, 12/11/2020 HIB VACCINES Completed 04/20/1985 SMOKING STATUS SCREENING [...] topic Medical Devices Not on file [place] [id number] [facility] BENEF[facility] ADMINISTRATORS [facility] [id number] [facility] [employer] ADMINISTRATORS [employer] [facility] ADMINISTRATORS [facility] ADMINISTRATORS Care Teams Dredge Master Relationship Specialty Start Date End Date Pcp, Unknown PCP - General 03/11/23 Janine Crespo MD [address] [place] [address], [address] [place] [address] [email or web address] Historical LMR Provider 05/27/17 Additional Source Comments The information contained in this document represents components of the legal health record. It is not the complete legal health record.[facility]
--- OUTSIDE RECORDS SUMMARY | 2025-06-06 18:38 | XMS_ITS | Encounter Summary ---
Author Organization [facility] Address [address] [place] [id number] Phone Care Team Providers Care Industrial Rehabilitation Consultant Name Role Phone Janine Crespo MD Unavailable [phone] Pcp, Unknown Primary Care Provider Unavailabl e Encounter Details Date Type Department Care Team (Late st Contact Info) Description 03/11/2023 Procedure Pass [facility], Ct Scan - [address] [address] Social History Tobacco Use Types Packs/Day Years [...] 6:21 AM EDT Ashly Wagoner RN * [place] Suicide Severity Rating Scale (Screener/Recent Self-Report) Question [...] on filedocumented in this encounter Care Teams Industrial Rehabilitation Consultant Relationship Specialty Start Date End Date Pcp, Unknown PCP - General 03/11/23 Janine Crespo MD [address] [place] [address], [address] [place] [address] [email or web address] Historical LMR Provider 05/27/17 documented as of this encounter Additional Source Comments The information contained in this document represents components of the legal health record. It is not the complete legal health record.[facility]
== END 2025-06-06 16:28 | disposition home or self-care (01) ==
LOC: HO.HSMS 15:27
PROVIDERS: PCP Nurse Practitioner Family; Visit Provider Physician Assistant Medical
DX: G47.33 Obstructive sleep apnea (adult) (pediatric) (principal); Z99.89 Dependence on other enabling machines and devices; G47.19 Other hypersomnia; R51.9 Headache, unspecified; F41.9 Anxiety disorder, unspecified; G47.00 Insomnia, unspecified
CPT/HCPCS: 99214

== ENCOUNTER 2025-06-07 08:57 | Outpatient (AMB) | payer OTHER, SELFPAY ==
--- OUTSIDE RECORDS SUMMARY | 2025-06-07 09:53 | XMS_ITS | Encounter Summary ---
Author Organization [facility] Address [address] [place] [address] Phone Care Team Providers Care Tankman Name Role Phone Janine Crespo MD Unavailable [phone] Pcp, Unknown Primary Care Provider Unavailabl e Encounter Details Date Type Department Care Team (Late st Contact Info) Description 03/11/2023 Procedure Pass [facility], Ct Scan - [address] [address] Social History Tobacco Use Types Packs/Day Years [...] 6:21 AM EDT Ashly Wagoner RN * [place] Suicide Severity Rating Scale (Screener/Recent Self-Report) Question [...] on filedocumented in this encounter Care Teams Tankman Relationship Specialty Start Date End Date Pcp, Unknown PCP - General 03/11/23 Janine Crespo MD [address] [place] [address], [address] [place] [address] [email or web address] Historical LMR Provider 05/27/17 documented as of this encounter Additional Source Comments The information contained in this document represents components of the legal health record. It is not the complete legal health record.[facility]
--- OUTSIDE RECORDS SUMMARY | 2025-06-07 09:53 | XMS_ITS | Clinical Summary ---
Author Organization [facility] Address [address] [place] [address] Phone Care Team Providers Care Shoe Repairer Helper Name Role Phone Janine Crespo MD Unavailable [phone] Pcp, Unknown Primary Care Provider Unavailabl e [...] topic Medical Devices Not on file Insurance [facility] [place] [id number] [facility] BENEFITS ADMINISTRATORS [facility] [place] [phone] [facility] [employer] ADMINISTRATORS [employer] [facility] ADMINISTRATORS [facility] ADMINISTRATORS Care Teams Shoe Repairer Helper Relationship Specialty Start Date End Date Pcp, Unknown PCP - General 03/11/23 Janine Crespo MD [address] [place] [address], [address] [place] [address] [email or web address] Historical LMR Provider 05/27/17 Additional Source Comments The information contained in this document represents components of the legal health record. It is not the complete legal health record.[facility] Case
--- NOTE | 2025-06-07 14:50 | A.OFFVIS_ITS ---
VS Expanded 06/07/25 14:51 Height 5 ft 3 in Weight 256 lb 6 oz BMI 45.4 Body Fat % 60.7 Body Fat Mass 155.8 Fat Free Mass 100.9 Visceral Fat Rating 26 Body Water % 26.9 Body Water Mass 69 Basal Metabolic Rate/Score 1,334 Intake Visit Reasons: TV Pre Op LSG 06/14/25 Allergies nut - unspecified Allergy (Unknown, Verified 06/07/25 14:50) Itching Medication List - Last Reconciled 06/07/25 by Jacob Spencer MD magnesium 250 mg PO DAILY melatonin 3 mg PO BEDTIME PRN ondansetron 4 mg PO Q12H pantoprazole 40 mg PO DAILY polyethylene glycol 3350 17 grams PO DAILY sertraline 50 mg PO DAILY sucralfate 10 mL PO BID sumatriptan succinate take 1 tab at onset of headache; if no relief may repeat 1 tab after at least 2 hrs; max = 4 tabs/24 hr orally; 1 month MDD 100mg HPI HPI TV Pre Op LSG 06/14/25: Details: Start time: 2.22pm, End time: 2.52pm ?I spent 25 minutes speaking with the patient on the phone plus an additional 5 minutes reviewing and updating records for a total of 30 minutes HPI Comments Details: This is the preoperative appointment for the upcoming sleeve gastrectomy [facility] Medical History (Updated 06/06/25 @ 22:19 by Eyal Dinero PA-C) Insomnia Morbid obesity Headache GERD (gastroesophageal reflux disease) Severe obesity Moderate recurrent major depression Generalized anxiety disorder Surgical History Hx of breast biopsy Hx of cholecystectomy Family History Mother AA (alcohol abuse) Father HTN (hypertension) Social History Are you a primary hearing healthcare practitioner to a significant other at home: No Do you presently have visiting nurse or other home services: No Alcohol intake: former Patient Tobacco Use Status: Never used Tobacco e-Cigarette/Vaping Use: Never Used Telehealth Telehealth Telehealth Platform: Telephone Location of provider rendering services: practice address Location of patient: address on file Patient Identification confirmed using: Name, : Yes Telehealth method: voice only Patient verbally consented to treatment: Yes Patient verbally consented to billing insurance company: Yes Patient informed of any privacy concerns related to visit: Yes Minutes spent on Phone/Video with Pt.: 30 Assessment & Plan Assessment & Plan (1) Morbid obesity: Code(s): E66.01 - Morbid (severe) obesity due to excess calories Category: Medical Plan: 1.?Plan for lap sleeve gastrectomy including upper GI endoscopy. All tests has been completed and reviewed and the patient is cleared for the surgery.? If diaphragmatic or ventral hernias are present at time of surgery, these will be repaired laparoscopically as well.?The surgery does not replace the need to change your lifestlyle which is the cause of the obesity problem. The surgery provides the motivation to try again to change your lifestyle, it reduces the appetite and make the transition to a better lifestyle easier and doubles the amount of weight you would lose compared to doing the lifestyle change without the surgery. You will need to be on a liquid diet with protein shakes for 2 weeks before surgery to maximize weight loss and boost your nutritional status to recover better from surgery and also for the first two weeks after surgery to let the stomach heal before we introduce other foods. After the first 2 weeks we will introduce protein bars and soft foods like scrambled eggs, cottage cheese and yogurt and after the 6th?week will introduce meat, fish and cooked vegetables in small amounts. Over time you should be able to eat everything in small amounts. Side effects like nausea, vomiting, heartburn or abdominal pain are not common in the practice unless you are not following in the practice. This operation requires lifetime commitment to following in our practice and communication with me. You will much less weight and experience side effects if you don?t communicate or not following in the practice. Complications are rare and in our practice is about 1/10 of the national average. However, you can develop bleeding that may require transfusion (hasn?t happened for year in the practice), you may from complications (we did not have any deaths in the practice) and infections. Infections are usually a result of breakdown in communication or not understanding or following directions correctly. They are difficult to treat, they can happen during the first 6 weeks, they may require to be in the hospital for weeks or even months, not being able to eat by mouth and you may have drains and surgeries to try and correct the issue. Other risks and complications include possible conversion to an open procedure, leaks, small bowel obstruction, blood clots, cardiac, or pulmonary complications, as alf complications such as ulcers, insufficient weight loss and vitamin deficiencies.?So far she has proven to be an excellent communicator and very compliant with all our directions accomplishing a great weight loss. I believe that she is an excellent candidate and she is ready. ? 2. Preop prescriptions were provided and explained the purpose of each one. Need to be purchased preop. Start Pantoprazole now as you get it from the pharmacy, 1 pill per day. Sucralfate and Zofran are for after surgery as needed. 3. Bowel prep: please do 7 packets ?of Miralax mixing each one with a an 8oz glass of water, crystal light, gatorade zero, or propel ?on 06/12/25 and the same amount on 06/13/25. The Miralax you begin with one packet at a time in 8oz water or crystal light, gatorade zero, or propel ?as early in the day as you can and you do them back to back until you finish them. Continue the protein shakes during? the bowel prep. 4. Needs to purchase 1oz medicine cups . 5. Needs to purchase Children's liquid Tylenol for postop pain control. 6. Avoid aspirin, motrin, Advil, Aleve, Ibuprofen, Naproxyn. Tylenol is OK. 7. She needs to purchase the Celebrate multivitamins from the hospital's gift shop. 8. Will do basic preop blood work-up any day between Friday06/07/25 and Friday06/10/25 fasting for 12 hours and is scheduled to see the Anesthesiologist prior to the day of surgery. 9. Importance of adherence to postop folllow-up and recommendations was underscored and she understands that. 10. Continue to avoid food and bars and continue with 4 ?PREMIER protein shakes (ONE scoop EACH in 8oz almond milk) at 10am-12pm, 1pm-3pm, 4pm-6pm and 7pm-9pm and one more PREMIER protein shake with TWO scoops in 8oz of almond milk at 10pm to midnight. 11. No soups, broths or V8 12. The patient's?medical?history has been reviewed and they are considered low risk for post op DVT and therefore DVT prophylaxis is not considered necessary. Travel after surgery was reviewed. The patient has not disclosed any travel plans during the first 30 days after surgery and they have been advised that within the first 30 days after surgery any bus, plane, train or car travel over 2 hours in duration is contraindicated due to the possibility of developing blood clots from immobility. Any travel, needs to include periods of ambulation of 10 minutes in duration every 2 hours.? Patient was instructed to discuss any plans for travel during this period with their bariatric surgeon.? 13. Use your CPAP daily if you got it already and bring it to the hospital with your mask 14. Please take at the day of surgery the following medications: NONE 15. Stop any control pills and don't use them for one month after surgery 16. Absolutely no smoking or vaping, or marijuana until the surgery and for at least the first 4 weeks. Only nicotine patches are allowed. 17. Send me weight measurements on Friday06/11/25 and then on Friday06/14/25, the day of surgery before you go to the hospital. 18. Avoid any steroids by mouth for any reason. Let me know if someone prescribes them to you 19. These instructions supersede anything else you read in the handbook, anything you watched in videos or classes or you were told by any other provider. If there is any conflict, you follow the above instructions and nothing else.
[2025-06-07 14:51] VITALS: BMI 45.4
== END 2025-06-07 14:54 | disposition home or self-care (01) ==
LOC: HO.HBS 08:57
PROVIDERS: PCP Nurse Practitioner Family; Visit Provider Surgery
DX: E66.01 Morbid (severe) obesity due to excess calories (principal); Z68.45 Body mass index [BMI] 70 or greater, adult
CPT/HCPCS: 99214

== ENCOUNTER 2025-06-08 08:14 | Outpatient (REF) | payer OTHER, SELFPAY ==
--- NOTE | ~2025-06-08 | US_ITS ---
EXAMINATION: US ABDOMEN COMPLETE WITH LIVER ELASTOGRAPHY HISTORY: E66.01 - Morbid (severe) obesity due to excess calories TECHNIQUE: Real-time grayscale ultrasound imaging of the abdomen was performed and images were reviewed. COMPARISON: There are no prior studies available for comparison. FINDINGS: Liver: The right lobe of the liver measures 20.3 cm in size. The left lobe of the liver measures 14.8 cm in size. The liver demonstrates increased echotexture, consistent with steatosis. No focal mass or intrahepatic biliary ductal dilatation is identified. There is normal hepatopedal flow in the portal vein. Ultrasound elastography of the liver was performed with 10 separate measurements of the liver parenchyma with the patient in the supine position. Measurements were obtained approximately 2 cm below Kiko's capsule and perpendicular to the capsule. The median shear wave velocity is 1.22 m/s. The interquartile range/median (IQR/median) is 0.40. Gallbladder and biliary tree: The gallbladder is surgically absent. The common bile duct is normal in caliber measuring 5 mm. Kidneys: The right kidney measures 12.3 cm in length. The left kidney measures 11.9 cm in length. The kidneys are unremarkable, without evidence of masses, hydronephrosis, or calculi. Pancreas: The pancreatic head, neck, and body are unremarkable. The pancreatic tail is obscured by bowel gas. Spleen: The spleen is normal in size and contour, measuring 10.4 cm in length. Abdominal aorta and inferior vena cava: The visualized portions of the abdominal aorta and inferior vena cava are normal in caliber. There is no free fluid in the abdomen. US/US abdomen comp w elastography IMPRESSION: Hepatomegaly and hepatic steatosis. The median shear wave velocity in the liver is 1.22 m/s, corresponding to a median liver stiffness of 4.50 kPa. The IQR/median value is 0.40. This is indicative of a poor quality data set, and the estimated liver stiffness may be unreliable. Findings are indicative of a normal elastography value with a low likelihood of severe fibrosis or cirrhosis. REFERENCE: Society of Radiologists in Ultrasound Liver Stiffness Thresholds (2019): LIVER STIFFNESS THRESHOLDS: *Shear wave velocity less than 1.3 m/s (Liver Stiffness equal or less than 5 kPa): High probability of being normal. *Shear wave velocity less than 1.7 m/s (Liver Stiffness less than 9 kPa): In the absence of other known clinical signs, rules out compensated advanced chronic liver disease. *Shear wave velocity between 1.7-2.1 m/s (Liver Stiffness 9-13 kPa): Suggestive of compensated advanced chronic liver disease but need further test for confirmation. *Shear wave velocity between 2.1-2.4 m/s (Liver Stiffness 13-17 kPa): Rules in compensated advanced chronic liver disease. *Shear wave velocity greater than 2.4 m/s (Liver Stiffness over 17 kPa): Suggestive of clinically significant portal hypertension. QUALITY OF DATA SET: SIGNIFICANT CHANGE FROM PRIOR EXAM: Significant change if liver stiffness measurement is 10% or greater from prior exam. OTHER CONSIDERATIONS: The stage of liver fibrosis may be overestimated in the setting of acute hepatitis, liver inflammation, elevated liver function tests, hepatic vascular congestion, obstructive cholestasis, non-fasting state, and infiltrative diseases such as amyloidosis and lymphoma. In some patients with NAFLD, the liver stiffness thresholds for compensated advanced chronic liver disease may be lower. In causes other than viral hepatitis and NAFLD, liver stiffness thresholds are not well established. Electronically signed by: El Galan MD 06/08/2025 09:20 AM EDT
== END 2025-06-08 08:15 | disposition home or self-care (01) ==
LOC: HO.US 08:14
PROVIDERS: PCP Nurse Practitioner Family; Visit Provider Surgery
DX: E66.01 Morbid (severe) obesity due to excess calories (principal); K21.9 Gastro-esophageal reflux disease without esophagitis
CPT/HCPCS: 76700; 76981

== ENCOUNTER → 2025-06-08 08:16 | Outpatient (BNV) | payer OTHER, SELFPAY | PROVIDERS: PCP Nurse Practitioner Family; Visit Provider Radiology Diagnostic Radiology | DX: R16.0 Hepatomegaly, not elsewhere classified (principal); K76.0 Fatty (change of) liver, not elsewhere classified; E66.01 Morbid (severe) obesity due to excess calories | CPT/HCPCS: 76700 ==

== ENCOUNTER 2025-06-10 14:51 | Outpatient (REF) | payer OTHER, SELFPAY ==
[2025-06-10 15:15] LABS: MANUAL DIFF FLAG NO
--- OUTSIDE RECORDS SUMMARY | 2025-06-10 15:19 | XMS_ITS | Encounter Summary ---
Author Organization [facility] Address [address] [place] [address] Phone Care Team Providers Care Spray Painter Helper Name Role Phone Janine Crespo MD Unavailable [phone] Pcp, Unknown Primary Care Provider Unavailabl e Encounter Details Date Type Department Care Team (Late st Contact Info) Description 03/11/2023 Procedure Pass [facility], Ct Scan - [address] [address] Social History Tobacco Use Types Packs/Day Years [...] 6:21 AM EDT Ashly Wagoner RN * [place] Suicide Severity Rating Scale (Screener/Recent Self-Report) Question Answer Date of Assessment Author 1. Wish to be (Past 1 Month) No 03/11/2023 6:21 AM SAMANTHAT Sonido Alford RN 2. Non-Specific Active Suicidal Thoughts (Past 1 Month) No 03/11/2023 6:21 AM SAMANTHAT Sonido Alford RN 6. Suicidal Behavior (Lifetime) No 03/11/2023 6:21 AM SAMANTHAT Soniod Alford RN documented as of this encounter Plan of Treatment Not on file documented as of this encounter Visit Diagnoses Not on filedocumented in this encounter Care Teams Spray Painter Helper Relationship Specialty Start Date End Date Pcp, Unknown PCP - General 03/11/23 Janine Crespo MD [address] [place] [address], [address] [place] [address] [email or web address] Historical LMR Provider 05/27/17 documented as of this encounter Additional Source Comments The information contained in this document represents components of the legal health record. It is not the complete legal health record.[facility]
--- OUTSIDE RECORDS SUMMARY | 2025-06-10 15:19 | XMS_ITS | Clinical Summary ---
Author Organization [facility] Address [address] [place] [phone] Phone Care Team Providers Care Claims Coordinator Name Role Phone Janine Crespo MD Unavailable [phone] Pcp, Unknown Primary Care Provider Unavailabl e [...] topic Medical Devices Not on file Insurance [facility] [place] [id number] [facility] BENEFITS ADMINISTRATORS [facility] [address] [facility] [facility] [place] [employer] ADMINISTRATORS [employer] [facility] ADMINISTRATORS [facility] ADMINISTRATORS Care Teams Claims Coordinator Relationship Specialty Start Date End Date Pcp, Unknown PCP - General 03/11/23 Janine Crespo MD [address] [place] [address], [address] [place] [address] [email or web address] Historical LMR Provider 05/27/17 Additional Source Comments The information contained in this document represents components of the legal health record. It is not the complete legal health record.[facility]
[2025-06-10 16:30] LABS: Alanine Aminotransferase 26 U/L (0-31); Albumin Level 4.7 g/dL (3.5-5.0); Alkaline Phosphatase 107 U/L (39-117); Anion Gap 13 (12-20); Aspartate Amino Transferase 26 U/L (5-31); Blood Urea Nitrogen 16 mg/dL (9-16); Calcium 9.7 mg/dL (8.4-10.2); Carbon Dioxide 28 mmol/L (22-29); Chloride 104 mmol/L (96-108); Cholesterol 176 mg/dL (<200); Estimated Glomerular Filt Rate > 60; HDL Cholesterol 35 mg/dL (>40); Potassium 4.8 mmol/L (3.3-5.1); Sodium 140 mmol/L (135-145); Total Protein 7.8 g/dL (6.5-8.0); Triglycerides 151 mg/dL (<150)
[2025-06-10 16:57] LABS: Hematocrit 47.9 % (37.0-47.0); Hemoglobin 15.5 g/dl (12.0-16.0); Imm Gran Abs Auto 0.02 X10*3/uL (0.00-0.03); Imm Gran Pct Auto 0.2 % (0.0-0.4); Lymphocytes Absolute Auto 2.9 X10*3/uL (1.2-4.9); Mean Corpuscular HGB Conc 32.4 g/dl (31.0-35.0); Mean Corpuscular Hemoglobin 29.5 pg (27.0-33.0); Mean Corpuscular Volume 91.2 fL (80.0-98.0); NRBC Abs Auto 0.000 X10*3/uL (0.0-0.012); NRBC Pct Auto 0.0 /100WBC (0.0-0.2); Platelet Count 438 X10*3/uL (160-400); Red Blood Count 5.25 X10*6/uL (4.20-5.50); White Blood Count 8.6 X10*3/uL (4.8-10.8)
[2025-06-10 17:05] LABS: INTERNATIONAL NORM RATIO 1.0 (0.9-1.1); Prothrombin Time 11.6 SEC (10.9-12.4)
[2025-06-10 17:07] LABS: Partial Thromboplastin Time 34.5 SEC (26.7-34.1)
== END 2025-06-10 14:52 | disposition home or self-care (01) ==
LOC: HO.LAB 14:51
PROVIDERS: PCP Nurse Practitioner Family; Visit Provider Surgery
DX: E66.01 Morbid (severe) obesity due to excess calories (principal); Z13.1 Encounter for screening for diabetes mellitus; Z13.29 Encounter for screening for other suspected endocrine disorder
CPT/HCPCS: 36415; 80053; 80061; 83036; 83525; 84443; 85025; 85610; 85730; 86140

== ENCOUNTER 2025-06-14 06:10 | Inpatient (IN) | payer OTHER, SELFPAY ==
--- NOTE | 2025-06-09 14:22 | HO.ANESPROP2 ---
Documented by User: Lucy Rome NP 06/13/25 08:55 HPI - Anesthesia Eval Consult details Narrative: 44yo F for ?Gastrectomy Sleeve,EGD,possible Diaphragmatic Hernia,possible Ventral Hernia,possible Open BMI 46 PMFSH Active Problems Active Problems: All Active Problems (Updated 06/09/25 @ 07:57 by Edwige Esqueda RN) CARMEN on CPAP (Acute) Anxiety (Acute) Excessive daytime sleepiness (Acute) Bilateral headaches (Acute) Insomnia (Acute) GERD (gastroesophageal reflux disease) (Acute) Morbid obesity (Acute) Past Medical History Medical History PTSD (post-traumatic stress disorder) CARMEN (obstructive sleep apnea) Migraines Insomnia Morbid obesity GERD (gastroesophageal reflux disease) Moderate recurrent major depression Generalized anxiety disorder Family History Family History Mother AA (alcohol abuse) Father HTN (hypertension) Family history of problems with anesthesia: No Surgical History Surgical History History of esophagogastroduodenoscopy (EGD) History of endometrial ablation Hx of breast biopsy Hx of cholecystectomy History of Problems with Anesthesia: No Social History Social History Housing Other:: duplex Are you a primary healthcare administrative assistant to a significant other at home: No Do you presently have visiting nurse or other home services: No Alcohol intake: former Patient Tobacco Use Status: Former Tobacco user Tobacco use type: Cigarette Years Smoked: 5 e-Cigarette/Vaping Use: Never Used Use of substances other than those prescribed or required for medical reasons: No Have you been hit, kicked, punched, or otherwise hurt by someone within the past year? If so, by whom?: No Spiritual Healthcare Practices: no Mormonism Healthcare Practices: no Cultural Healthcare Practices: no Are you DNR?: No Advance Directives: No ( primary contact) Advance Directives on File: No Patient : No (had endometrial ablation) FDLMP: ~2017 : No Meds Allergies Allergy/AdvReac Type Severity Reaction Status Date / Time tree nut Allergy Severe Anaphylaxis Verified 06/10/25 10:43 Home Medications ?Medication ?Instructions ?Recorded ?Confirmed ?Last Taken ?Type sertraline 50 mg tablet 50 mg PO DAILY 02/14/25 06/09/25 Unknown History magnesium 250 mg tablet 250 mg PO DAILY 03/14/25 06/09/25 Unknown History melatonin 3 mg capsule 3 mg PO BEDTIME PRN Sleep 03/14/25 06/09/25 Unknown History Exam Pertinent Lab Results Pertinent Lab Results: Lab Results 06/10/25 Range/Units 15:06 Blood Type A Positive Antibody Screen NEGATIVE Laboratory Tests 06/10/25 15:14 WBC 8.6 Hgb 15.5 Hct 47.9 H Plt Count 438 H Sodium 140 Potassium 4.8 Chloride 104 Carbon Dioxide 28 BUN 16 Creatinine 0.76 Narrative Narrative: EKG 04/2025 Vent. Rate : 63 BPM Atrial Rate : 63 BPM P-R Int : 138 ms QRS Dur : 82 ms QT Int : 402 ms P-R-T Axes : 20 46 51 degrees QTcB Int : 411 ms Normal sinus rhythm Normal ECG No previous ECGs available Assessment and Plan Assessment Anesthesia Assessment: Chart Reviewed Final Anesthetic Review Family History of Problems with Anesthesia: No History of Problems with Anesthesia: No Documented by User: Shena Barnes MD 06/14/25 08:19 PMFSH Past Medical History Medical History PTSD (post-traumatic stress disorder) CARMEN (obstructive sleep apnea) Migraines Insomnia Morbid obesity GERD (gastroesophageal reflux disease) Moderate recurrent major depression Generalized anxiety disorder Family History Family History Mother AA (alcohol abuse) Father HTN (hypertension) Surgical History Surgical History History of esophagogastroduodenoscopy (EGD) History of endometrial ablation Hx of breast biopsy Hx of cholecystectomy Social History Social History Housing Other:: duplex Are you a primary healthcare administrative assistant to a significant other at home: No Do you presently have visiting nurse or other home services: No Alcohol intake: former Patient Tobacco Use Status: Former Tobacco user Tobacco use type: Cigarette Years Smoked: 5 e-Cigarette/Vaping Use: Never Used Use of substances other than those prescribed or required for medical reasons: No Have you been hit, kicked, punched, or otherwise hurt by someone within the past year? If so, by whom?: No Spiritual Healthcare Practices: no Mormonism Healthcare Practices: no Cultural Healthcare Practices: no Are you DNR?: No Advance Directives: No ( primary contact) Advance Directives on File: No Patient : No (had endometrial ablation) FDLMP: ~2017 : No Meds Allergies Allergy/AdvReac Type Severity Reaction Status Date / Time tree nut Allergy Severe Anaphylaxis Verified 06/10/25 10:43 Home Medications ?Medication ?Instructions ?Recorded ?Confirmed ?Last Taken ?Type sertraline 50 mg tablet 50 mg PO DAILY 02/14/25 06/09/25 Unknown History magnesium 250 mg tablet 250 mg PO DAILY 03/14/25 06/09/25 Unknown History melatonin 3 mg capsule 3 mg PO BEDTIME PRN Sleep 03/14/25 06/09/25 Unknown History Exam Airway Mallampati Class: III TM Dist: >3cm Neck ROM: Full Loose/Missing/Broken Teeth: No Heart: RRR Lungs: CTA Assessment and Plan Assessment Anesthesia Assessment: Anesthesia Plan Discussed Final Anesthetic Review NPO: Yes ASA Class: III Final Preanesthetic Review: Meds/Allgs Chart Reviewed, Consent Obtained/Reviewed and Anes Risks/Benef Reviewed Patient Risk: Intermediate Procedure Risk: Intermediate Anesthetic Plan Anesthetic Plan: GA Disposition: Standard PACU
[2025-06-10 10:18] VITALS: BMI 44.7
[2025-06-14] VITALS (18 sets, daily range): BP systolic 104–147; BP diastolic 59–88; PULSE 66–90; RESP 13–22; TEMP 36–37.1; O2SAT 91–97; BMI 45.7
--- OUTSIDE RECORDS SUMMARY | 2025-06-14 06:21 | XMS_ITS | Encounter Summary ---
Author Organization [facility] Address [address] [place] [address] Phone Care Team Providers Care Broker Name Role Phone Janine Crespo MD Unavailable [phone] Pcp, Unknown Primary Care Provider Unavailabl e Encounter Details Date Type Department Care Team (Late st Contact Info) Description 03/11/2023 Procedure Pass [facility], Ct Scan - [address] [address] Social History Tobacco Use Types Packs/Day Years [...] 6:21 AM EDT Ashly Wagoner RN * [place] Suicide Severity Rating Scale (Screener/Recent Self-Report) Question [...] on filedocumented in this encounter Care Teams Broker Relationship Specialty Start Date End Date Pcp, Unknown PCP - General 03/11/23 Janine Crespo MD [address] [place] [address], [address] [place] [address] [email or web address] Historical LMR Provider 05/27/17 documented as of this encounter Additional Source Comments The information contained in this document represents components of the legal health record. It is not the complete legal health record.[facility]
--- OUTSIDE RECORDS SUMMARY | 2025-06-14 06:21 | XMS_ITS | Clinical Summary ---
Author Organization [facility] Address [address] [place] [address] Phone Care Team Providers Care Law Librarian Name Role Phone Janine Crespo MD Unavailable [phone] Pcp, Unknown Primary Care Provider Unavailabl e [...] topic Medical Devices Not on file Insurance [facility] [place] [id number] [facility] BENEFITS ADMINISTRATORS [facility] [place] [address] [facility] [place] [facility] [place] [employer] ADMINISTRATORS [employer] [facility] ADMINISTRATORS [facility] ADMINISTRATORS Care Teams Law Librarian Relationship Specialty Start Date End Date Pcp, Unknown PCP - General 03/11/23 Janine Crespo MD [address] [place] [address], [address] [place] [address] [email or web address] Historical LMR Provider 05/27/17 Additional Source Comments The information contained in this document represents components of the legal health record. It is not the complete legal health record.[facility] Case
[2025-06-14] MEDS: Lactated Ringers 1,000 ML 999 ML IV (07:02)
[2025-06-14] MEDS: Aprepitant 32 MG/4.4 ML VIAL IVPUSH (07:03)
[2025-06-14 07:05] LABS: UPreg QC Valid YES
--- NOTE | 2025-06-14 07:19 | PHA.MEDREC ---
Pharmacy Consult ? Medication Reconciliation Pharmacy has reviewed the medication reconciliation done by RN.
--- NOTE | 2025-06-14 07:22 | P.BOP_ITS ---
Brief Operative Note Date of Service: 06/14/25 Pre-op diagnosis: Morbid obesity with comorbidities (see below) Post-op diagnosis: same Procedure: INITIAL PATIENT BMI ON PRESENTATION AT OUR OFFICE: 49.5 kg/m2 LAST BMI BEFORE SURGERY: 44.2 kg/m2 COMORBIDITIES: GERD, PTSD, depression, anxiety, insomnia, migraines, liver steatosis ?The patient presented to the Weight Management Program with significant obesity that was negatively impacting the patient's comorbidities as listed above.? The program is a phased program with a special focus on preoperative medical weight management to promote substantial weight loss and prepare the patients for the second phase of the program: bariatric surgery. The patient participated in an intensive weekly lifestyle ?intervention and exercise program during which the patient ?has lost between the initial office visit and the last preoperative visit 29.7 lbs, or 10.6% of initial actual body weight. It was deemed appropriate for the patient to now have bariatric surgery. In light of the current Covid-19 pandemic and the well documented strong association of obesity and increased risk of worse outcomes if infected with Covid-19 (REFERENCES: https://pubmed.ncbi.nlm.nih.gov/26929234/ ,? https://pubmed.ncbi.nlm.nih.gov/53039402/ ), any delay in undergoing bariatric surgery may lead to the patient's worsening health condition and increased?risk of more severe Covid-19 disease if infected. In addition a recent?study from [facility] published in [facility] on 08/06/2021 ([email or web address]/C:/[email or web address].pdf) found that, among patients with obesity, substantial weight loss achieved with surgery was associated with improved outcomes of COVID-19 infection. The findings suggest that obesity can be a modifiable risk factor for the severity of COVID-19 infection. In addition, the patient met the BMI-criteria for bariatric surgery based on the BMI on initial presentation. The patient should not be penalized for achieving such weight loss because ?it is not sustainable long-term without surgical intervention and it was achieved in preparation for bariatric surgery ?under my direction and based on my published research ([email or web address]:/[email or web address]).pdf and? https://www.soard.org/article/[email or web address](73)35329-X/pdf ) ?that a 10% preoper ative weight loss improves long-term weight loss after surgery and reduces perioperative complications.? Insurance carriers such as [facility] have endorsed my recommendations ?and have included in their policies criteria to include a 10% preoperative weight loss requirement. PROCEDURE: Esophago-gastroscopy, laparoscopic sleeve gastrectomy and laparoscopic gastropexy INDICATIONS: This is a 44 year-old female who was electively scheduled for laparoscopic, possibly open sleeve gastrectomy. The risks and complications of the procedure were discussed with the patient in advance, particularly the possibility of ; pulmonary embolism; staple line leak; bleeding; GERD; cardiac, pulmonary, or renal complications; as well as long-term problems such as insufficient weight loss, vitamin deficiency, strictures, or ulcers. The patient understood all the risks, and was in agreement to proceed with surgery. DESCRIPTION OF PROCEDURE: After informed consent was obtained from the patient, the patient was given preoperative antibiotics, and was transferred to the operating room. After successful induction of general anesthesia, pneumatic compression devices were placed on both lower extremities. An upper endoscopy was performed next. The oropharynx and esophagus appeared to be within normal limits. There was a diaphragmatic hernia present of moderate size consistent with the findings of the preoperative upper GI. The stomach was entered. Then after all fluid and air were suctioned and the stomach was fully decompressed, the scope was withdrawn and secured in the mid esophagus. The patient was then prepped and draped in the usual sterile manner, and abdominal access was established at the right upper quadrant with the Pedro technique. A 12 mm blunt port was inserted, and the abdomen was insufflated with CO2 to a pressure of 15 mmHg. Under direct visualization, additional ports were placed, specifically two 5 mm Versi-step ports to the left upper quadrant, and a 5 mm Versi-Step port to the right upper quadrant. 1% lidocaine plain was used to infiltrate all port sites as well as all fascia defects. Following that, the patient was placed in a steep reverse Trendelenburg position. An additional 5 mm port was placed to the right flank for the Mediflex retractor that was used to retract the left lobe of the liver. The gastro-esophageal fat pad was opened with the ultrasonic device (underbeat, Olympus) and the anterior esophagus and hiatus were exposed. The angle of His was opened with the ultrasonic device the fundus of the stomach from any diaphragmatic and splenic attachments. I then opened the gastrocolic ligament between the transverse colon and the greater curvature of the stomach with the ultrasonic device to enter the lesser sac and facilitate the ligation of the short gastric vessels. I started at a mid-point along the greater curvature and using the Thunderbeat, all short gastric vessels were divided all the way to the angle of His until the left sahara was completely dissected at its entirety. I then divided the gastro-colic ligament distally to a distance of about 3-4 cm proximal to the pylorus. The stomach was then divided transversely with one Endo AMADO-45 purple and four AMADO-60 articulating purple loads using the [employer] stapler and loads. Every effort was made that the gastric sleeve had a tubular shape and an even caliber throughout. Once the sleeve resection was completed, the staple line of the gastric sleeve was reinforced with Hemoclips. The resected stomach was retrieved without difficulty from the Pedro port. A gastropexy was then performed in order to prevent postoperative GERD and partial gastric volvulus. Several interrupted 2.0 Surgidac sutures were placed between the sleeve's staple line and the previously divided greater omentum and gastro-colic ligament using the Endo-Stitch device. ?An upper endoscopy was performed. There was no narrowing at the GE junction. The scope was easily advanced all the way to the pylorus which was clearly visualized. There was no narrowing anywhere and the sleeve's caliber was even throughout. The sleeve's staple line was inspected and there was no evidence of ischemia, bleeding or dehiscence. At that point the gastroscope was withdrawn from the patient?s mouth while we were decompressing the bowel and the stomach from any remaining air. I looked into the lesser sac to see how the sleeve was situating and it was situating well. There was no bleeding from the staple line, spleen, or short gastric vessels. The Mediflex retractor was removed, and the undersurface of the liver was inspected and there was no bleeding. The patient was placed in supine position. I closed the fascial defect of the 12 mm port site with a figure of eight #1 Polysorb suture. Then 30cc Ropivacaine plain with 10 mg of Dexamethasone were used to infiltrate the fascial closure as well as all skin incisions. At this point, the abdomen was deflated, all ports were removed under direct vision, and no bleeding was noted from any of the port sites. The skin incisions were irrigated with saline and were closed with 4-0 absorbable monofilament sutures. Steri-Strips and OpSites were used to cover all incisions. The patient was extubated and was transferred in stable condition to the recovery room for further care. I was present and performed all gallegos parts of the procedure. Ms. Munroecami was the salon shampoo assistant. There were no residents to assist with this case. Juanjose Spencer MD, PhD, FACS Surgeon: Jacob Spencer MD Anesthesia: GETA, local and other (TAP block) Was an Office Machine Repair Shop Supervisor used for this Procedure?: No Office Machine Repair Shop Supervisor: Sayra Hernandez Estimated blood loss (mL): 10 IV fluids (mL): 2,100 Urine output (mL): 0 (NO Fley to record output) Pathology: other (1) Stomach, 2) Gastro-esophageal fat pad) Condition: stable Disposition: PACU
--- NOTE | 2025-06-14 07:22 | MHC.SHP ---
Pre-Procedural Eval Section A - 24 Hr Update-Section A only Date of Service: 06/14/25 The patient is an INPATIENT: Yes The patient has been examined within 24 hours of the surgical procedure. The History & Physical has been completed within 30 days and I have reviewed it.: No Section B - Complete if H&P > 30 days Chief Complaint: Obesity Relevant Family History (Specify if Yes): No Relevant Social History: None Present Medications: None Medical History: No relevant PMH History of Previous Operations: No relevant previous surgery Allergies: Allergies Allergy/AdvReac Type Severity Reaction Status Date / Time tree nut Allergy Severe Anaphylaxis Verified 06/10/25 10:43 Review of Systems Sugical H&P ROS: Negative: Constitution, Cardiovascular, Respiratory, Neurological, Psychiatric, Hem-Onc, Allergic/Immunologic, Gastrointestinal, Genitourinary, Musculoskeletal, Integumentary, Endocrine and Eyes/Ears/Nose/Throat Exam Surgical H&P Exam: Normal: HEENT, Normal: Heart, Normal: Lungs, Normal: Extremities, Normal: Abdomen, Normal: Skin and Normal: Neurological Plan Diagnosis/Plan: Unchanged I have reviewed the history and physical and performed a pertinent physical examination on my patient. No changes have occurred unless specified. Time Spent With Patient Time: Total time managing care of this patient today ____ minutes.
--- NOTE | 2025-06-14 07:27 | P.PNGS_ITS ---
Subjective Subjective Date of Service: 06/15/25 Interval history: Feels well. Mild incisional pain. She is tolerating phase 1 bariatric diet Physical Exam 2 Vital Signs: Vital Signs: Last Vital Signs Temp 97.4 F 06/14/25 07:00 Pulse 66 06/14/25 07:00 Resp 18 06/14/25 07:00 BP 122/66 06/14/25 07:00 Pulse Ox 97 06/14/25 07:00 O2 Del Method Room Air 06/14/25 07:00 BMI result Body Mass Index 44.7 GI: Inspection: Yes normal to inspection and Yes incision (clean, dry and intact) Palpation (GI): Soft to palpation Extrem: Right lower extremity: normal to inspection (no calf tenderness) L eft lower extremity: normal to inspection (no calf tenderness) Objective Data Active Medications Lactated Ringer's (Lr) 1,000 mls @ 100 mls/hr IVCONT .Q10H [facility] Stop: 06/14/25 10:14 Lactated Ringer's (Lr) 1,000 mls @ 999 mls/hr IV .Q1H1M [facility] Stop: 06/14/25 08:15 Last Admin: 06/14/25 07:02 Dose: 999 mls/hr Documented By: ROBERTO Labs 06/15/25 05:34 06/15/25 05:34 Labs: Laboratory Results - last 24 hr 06/14/25 06:10 Urine Test NEGATIVE Procedures Date of Service Date of Service: 06/15/25 Progress Note: A&P Assessment and plan (1) Morbid obesity: Status: Acute Assessment and Plan: s/p laparoscopic sleeve gastrectomy and gastropexy Doing well Will check am labs and if OK the patient will be discharged home (2) GERD (gastroesophageal reflux disease): Status: Acute (3) CARMEN on CPAP: Status: Acute (4) Anxiety: Status: Acute (5) Steatosis, liver: Status: Acute (6) PTSD (post-traumatic stress disorder): Status: Acute (7) Moderate recurrent major depression: Status: Acute (8) Bilateral headaches: Status: Acute (9) Hepatomegaly: Status: Acute (10) S/P laparoscopic sleeve gastrectomy: Status: Acute Time Spent With Patient Time: Total time managing care of this patient today ____ minutes. Quality Stroke Does the patient have a stroke diagnosis?: No VTE Prior VTE?: No VTE Risk Level:: Surgical - moderate VTE Device Contraindication: N/A - Device Ordered VTE Drug Contraindication: Treatment Not Indicated
--- NOTE | 2025-06-14 10:29 | PM.DS ---
DS: Providers Provider Date of Service: 06/15/25 Date of admission: 06/14/25 06:10 Date of discharge: 06/15/25 Primary care physician: Jewels Smith NP DS: Diagnosis Discharge Diagnosis (1) Morbid obesity: Status: Acute (2) GERD (gastroesophageal reflux disease): Status: Acute (3) CARMEN on CPAP: Status: Acute (4) Anxiety: Status: Acute (5) Steatosis, liver: Status: Acute (6) PTSD (post-traumatic stress disorder): Status: Acute (7) Moderate recurrent major depression: Status: Acute (8) Bilateral headaches: Status: Acute (9) Hepatomegaly: Status: Acute (10) S/P laparoscopic sleeve gastrectomy: Status: Acute DS: Summary Hospital Course Hospital Course: ADMITTING DIAGNOSIS: morbid obesity, hepatomegaly, PTSD, depression, CARMEN on CPAP, anxiety, headaches, GERD DISCHARGE DIAGNOSIS: same, s/p laparoscopic sleeve gastrectomy and gastropexy with diaphragmatic hernia repair PAST SURGICAL HISTORY: Hx of breast biopsy Hx of cholecystectomy PROCEDURE: upper endoscopy, laparoscopic sleeve gastrectomy and gastropexy DISCHARGE SUMMARY: History of Present Illness: The patient is a 44 year-old woman with a BMI of 44.7 kg/m2 and associated co-morbidities as described above. The patient had extensive work-up, lost 27.2 lbs preoperatively and was electively scheduled for laparoscopic, possible open sleeve gastrectomy and gastropexy. Risks and complications of the surgery were discussed with the patient in advance, particularly the possibility of , pulmonary embolism, anastomotic leak, bleeding, bowel injury, GERD, cardiac, renal or pulmonary complications. The patient understood all the risks and was in agreement with the surgical plan. Hospital Course: The patient underwent an uneventful laparoscopic sleeve gastrectomy with gastropexy on the day of admission. Postoperatively, the patient was transferred to the surgical floor. The patient received IV acetaminophen and IV Dilaudid for pain control. Patient was started on bariatric phase 1 diet POD #0. On postoperative day one, the patient was feeling well without nausea, vomiting, fevers, or tachycardia. The patient had some mild incisional pain and the abdomen was soft. On the morning of postoperative day one, the patient was continued on 1 ounce of water or ice every half hour. During the day, the patient did fairly well, having some incisional pain, but able to ambulate adequately and to tolerate liquids well. Since the patient is doing well, we decided that the patient was ready to be discharged. The patient was given instructions to follow-up in office next week and to call the office for any fever over 101, persistent abdominal pain, nausea, vomiting, GERD, symptoms of DVT such as calf tenderness, or leg swelling, or pulmonary embolism such as chest pain or shortness of breath. The patient was also instructed to drink 40-60 ounces of liquids per day using the 1-ounce cups. The patient had been given prescriptions for Tylenol for pain, Zofran prn for nausea, and pantoprazole and carafate previously. The patient was encouraged to ambulate and use the incentive spirometer. The patient was allowed to shower, but no baths, and encouraged to stay active at home. All of these instructions were given to the patient personally. All questions were answered and the patient understood all instructions, the instructions were also given to the patient in print. Time Attestation Discharge Coordination Time (in mins): 30 Quality: Safe Use of Opioids Does Pt have an Active Cancer Diagnosis on the Problem List?: No Quality: Stroke Does the patient have a stroke diagnosis?: No Physical Exam Vital Signs: Vital Signs: Last Vital Signs Temp 98.7 F 06/14/25 10:05 Pulse 83 06/14/25 10:20 Resp 16 06/14/25 10:27 BP 141/88 H 06/14/25 10:20 Pulse Ox 95 06/14/25 10:20 O2 Del Method Nasal Cannula 06/14/25 10:20 O2 Flow Rate 3 06/14/25 10:20 BMI result Body Mass Index 44.7 DS: Data Data Completed and Pending Pending studies at discharge: Pending at discharge 06/14/25 09:15 Surgical [PTH] Routine Labs on day of discharge: Laboratory Results - last 24 hr 06/14/25 06:10 Urine Test NEGATIVE Discharge Plan Discharge Anticipated Discharge Date/Time: 06/15/25 10:00 Patient Disposition: Home, Self-Care Discharge Diagnosis: s/p laparoscopic sleeve gastrectomy with gastropexy Referrals: Jewels Smith NP [Primary Care Provider, Internal Medicine] - 1 Week Discharge Medications: Continued sucralfate 100 mg/mL suspension 10 ml PO BID Qty: 600 2RF pantoprazole 40 mg tablet,delayed release (DR/EC) 40 mg PO DAILY Qty: 90 0RF ondansetron 4 mg tablet,disintegrating 4 mg PO Q12H Qty: 20 0RF Rx Instructions: Only take one every 12 hours as needed if you have nausea sertraline 50 mg tablet 50 mg PO DAILY melatonin 3 mg capsule 3 mg PO BEDTIME PRN (Reason: Sleep) sumatriptan succinate 50 mg tablet See Rx Instructions PO .COMPLEX MDD 100mg 30 Days Qty: 12 0RF Rx Instructions: take 1 tab at onset of headache; if no relief may repeat 1 tab after at least 2 hrs; max = 4 tabs/24 hr orally; Discontinued magnesium 250 mg tablet 250 mg PO DAILY Discharge Orders: Discharge Order (Routine); Ordered 06/15/25 Ordered By: Jacob Spencer Activity on Discharge: No heavy lifting Stand Alone Forms: Patient Portal Discharge page Print Language: Albanian Care Plan Goals: Weight loss. Health Concerns: morbid obesity Plan of Treatment: No tub baths, sex or returning to work until discussed at first post op appointment. No alcohol, tobacco or illegal drug use. Continue to use incentive spirometer hourly while awake. Walk in home for 5- 10 minutes every 2 hours during the first week. Wear abdominal binder with activity. Follow all meal plan instructions from your bariatric surgeon. Review bariatric handbook and call with any questions. Discharge Instructions 1. Please call your doctor or come back to the emergency room should any new symptoms arise. 2. Activity: abstain from alcohol,? limited stair climbing, no bending, no driving, no exercise, no illicit substances, no lifting, no sex, no tub bath, no work. 4. Diet: follow your bariatric surgeon's recommendations for advancing diet. 5. Dressing Change/Wound Care: Your incisions are covered with waterproof dressings. You can shower with these and pat dry. Do not rub over dressings or incisions. If the area is tender, you may apply an ice pack for short intervals (no more than 20 minutes on, followed by at least 20 minutes off). Do not apply heat. Do not use creams, lotions, or topical antibiotics unless instructed to do so by your surgeon. 6. Call your doctor if: - Your temperature exceeds 101.5 F - You experience excessive pain or swelling - You have an unexpected reaction to medication - You have excessive bleeding - You experience continued vomiting/nausea - Your incision begins to separate - Your incision shows signs of infection such as increased redness, swelling, excessive pain, heat, or drainage (light blood or clear fluid is normal) General instructions: No lifting greater than 10 lbs for the next 6 weeks[address] driving within 24 hours of taking narcotic pain medications. If you do not move your bowels in the next 2 days, please take milk of magnesia over the counter. Please follow the post op diet and do not advance your diet until instructed by your surgeon or until you are seen in the office in about 1 week. Please walk around your home every hour or two to prevent blood clots from forming in your legs. You do not need to wake from sleeping to walk. Please sleep in a bed or couch to prevent kinking at the hips and knees. Please take your incentive spirometer (your lung national insurance officer) home with you and use it for the next few days to prevent pneumonias. You may shower; no hot tubs, baths or swimming pools. Please make sure you are consuming 40-60 ounces of total fluids per day. Avoid all carbonation. Please call the office with any questions or concerns such as increasing abdominal pain, fever, chills, shortness of breath, chest pain, leg pain or swelling, or redness or drainage from your incisions. Do not hesitate to contact the office with any questions at . The patient's medical history has been reviewed and they are considered low risk for post op DVT and therefore DVT prophylaxis is not considered necessary. Travel after surgery was reviewed. The patient has not disclosed any travel plans during the first 30 days after surgery and they have been advised that within the first 30 days after surgery any bus, plane, train or car travel over 2 hours in duration is contraindicated due to the possibility of developing blood clots from immobility. Any travel, needs to include periods of ambulation of 10 minutes in duration every 2 hours.? The patient was instructed to discuss any plans for travel during this period with their bariatric surgeon. Assessment: s/p laparoscopic sleeve gastrectomy with gastropexy Discharge Date/Time: 06/15/25 08:56
[2025-06-14 10:53] LABS: Hematocrit 42.0 % (37.0-47.0); Hemoglobin 13.9 g/dl (12.0-16.0)
[2025-06-14 11:11] LABS: Anion Gap 14 (12-20); Blood Urea Nitrogen 14 mg/dL (9-16); Calcium 8.5 mg/dL (8.4-10.2); Carbon Dioxide 24 mmol/L (22-29); Chloride 105 mmol/L (96-108); Creatinine Clr Calc Pharmacy 117.8; Estimated Glomerular Filt Rate > 60; Potassium 3.7 mmol/L (3.3-5.1); Sodium 139 mmol/L (135-145)
[2025-06-14] MEDS: Lactated Ringers 1,000 ML 100 ML IVCONT ×2 (12:13→23:53)
[2025-06-14] MEDS: 0.9 % Sodium Chloride Flush 3 ML SYRINGE IVFLUSH ×2 (14:09→19:18)
[2025-06-15 03:30] VITALS: BP 122/63; PULSE 79; RESP 16; TEMP 36.9; O2SAT 93
[2025-06-15 05:49] LABS: MANUAL DIFF FLAG NO
[2025-06-15 06:08] LABS: Hematocrit 40.9 % (37.0-47.0); Hemoglobin 13.4 g/dl (12.0-16.0); Imm Gran Abs Auto 0.06 X10*3/uL (0.00-0.03); Imm Gran Pct Auto 0.6 % (0.0-0.4); Lymphocytes Absolute Auto 1.8 X10*3/uL (1.2-4.9); Mean Corpuscular HGB Conc 32.8 g/dl (31.0-35.0); Mean Corpuscular Hemoglobin 29.7 pg (27.0-33.0); Mean Corpuscular Volume 90.7 fL (80.0-98.0); NRBC Abs Auto 0.000 X10*3/uL (0.0-0.012); NRBC Pct Auto 0.0 /100WBC (0.0-0.2); Platelet Count 413 X10*3/uL (160-400); Red Blood Count 4.51 X10*6/uL (4.20-5.50); White Blood Count 10.6 X10*3/uL (4.8-10.8)
[2025-06-15 06:16] LABS: Anion Gap 12 (12-20); Blood Urea Nitrogen 9 mg/dL (9-16); Calcium 9.3 mg/dL (8.4-10.2); Carbon Dioxide 25 mmol/L (22-29); Chloride 107 mmol/L (96-108); Creatinine Clr Calc Pharmacy 144.5; Estimated Glomerular Filt Rate > 60; Potassium 4.2 mmol/L (3.3-5.1); Sodium 140 mmol/L (135-145)
[2025-06-15 07:47] VITALS: BP 142/73; PULSE 77; RESP 18; TEMP 36.1; O2SAT 94
--- NOTE | 2025-06-15 08:34 | HO.POSTANES ---
Post Anesthesia Evaluation Post Anesthesia Evaluation Date of Service: 06/15/25 Vital Signs: Vital Signs Temp Pulse Resp BP Pulse Ox O2 Del Method 06/15/25 07:47 97.0 F 77 18 142/73 H 94 Room Air 06/15/25 03:30 98.4 F 79 16 122/63 93 Room Air 06/14/25 23:36 97.6 F 81 18 137/68 92 Room Air Anesthesia: General Mental Status: Awake Pain Control: Satisfactory Nausea/Vomiting: None Hydration: Adequate Anesthesia-Related Issues: No Anes. Related Issues
--- NOTE | 2025-06-15 08:59 | MHC.CM.PN ---
PT CLIFF PRIOR TO BEING SEEN BY CM.PT DCD HOME SELF CARE
== END 2025-06-15 08:56 | disposition home or self-care (01) | DRG 403 ==
LOC: HO.SSSA 10:25 → HO.S3 10:57
PROVIDERS: Nurse Practitioner; Surgery; Admitting Provider Physician Assistant Surgical; PCP Nurse Practitioner Family; Visit Provider Physician Assistant Surgical
PROC: 0DB64Z3 Excision of Stomach, Percutaneous Endoscopic Approach, Vertical (ICD-10-PCS; CPT 43845; principal; 2025-06-14 07:30)
DX: E66.01 Morbid (severe) obesity due to excess calories (principal); K76.0 Fatty (change of) liver, not elsewhere classified; F32.A Depression, unspecified; F41.1 Generalized anxiety disorder; G47.33 Obstructive sleep apnea (adult) (pediatric); Z68.41 Body mass index [BMI] 40.0-44.9, adult; K21.9 Gastro-esophageal reflux disease without esophagitis; F43.10 Post-traumatic stress disorder, unspecified; G47.00 Insomnia, unspecified; G43.909 Migraine, unspecified, not intractable, without status migrainosus; Z79.899 Other long term (current) drug therapy
CPT/HCPCS: 36415; 80048; 81025; 85014; 85018; 85025; 86850; 86900; 86901; 88304; 88307; 88342; A4649; C9145; J0131; J0690; J1100; J1171; J1308; J1630; J2003; J2250; J2405; J2704; J2765; J2795; J3010; J7120

== ENCOUNTER → 2025-06-14 06:10 | Outpatient (BNV) | payer OTHER, SELFPAY | PROVIDERS: Admitting Provider Physician Assistant Surgical; PCP Nurse Practitioner Family; Visit Provider Surgery | DX: E66.01 Morbid (severe) obesity due to excess calories (principal); Z68.41 Body mass index [BMI] 40.0-44.9, adult | CPT/HCPCS: 43659; 43775; 99024 ==

== ENCOUNTER 2025-06-21 14:47 | Outpatient (AMB) | payer OTHER, SELFPAY ==
--- NOTE | 2025-06-21 14:30 | A.OFFWM_ITS ---
Intake Intake Visit Reasons: VIDEO PO LSG 06/14/25 Allergies tree nut Allergy (Severe, Verified 06/10/25 10:43) Anaphylaxis PFSH Medical History PTSD (post-traumatic stress disorder) CARMEN (obstructive sleep apnea) Migraines Insomnia Morbid obesity GERD (gastroesophageal reflux disease) Moderate recurrent major depression Generalized anxiety disorder Surgical History History of esophagogastroduodenoscopy (EGD) History of endometrial ablation Hx of breast biopsy Hx of cholecystectomy Family History Mother AA (alcohol abuse) Father HTN (hypertension) Social History Household Members: Family Housing: House Housing Other:: duplex Are you a primary family day care provider to a significant other at home: No Do you presently have visiting nurse or other home services: No Alcohol intake: former Patient Tobacco Use Status: Former Tobacco user Tobacco use type: Cigarette Years Smoked: 5 e-Cigarette/Vaping Use: Never Used Behavioral Health Assessment Weight Management Therapy Therapy Notes Details Subjective: The patient underwent weight loss surgery on 06/14/2025. Her weight on the day of surgery was 249 lbs; as of today, 06/21/2025, her weight is 240 lbs. She reports that her recovery has been painful but notes improvement today. She is tolerating the liquid diet well. Mood is described as good. She identifies her and children as primary sources of support. The patient denies experiencing hunger or food-related thoughts at this time. Objective: The patient presented for a behavioral health post-operative follow-up. A guided emotional check-in was completed to assess her recovery, mood, and overall functioning. Psychoeducation was provided regarding common emotional adjustments after bariatric surgery, with discussion on differentiating hunger from cravings and strategies for managing food-related thoughts. The importance of following Weight Management Program guidelines?including dietary, hydration, and exercise recommendations?was reinforced. Resources for ongoing support were provided, and the patient was invited to join the clinic?s Facebook group for continued engagement. Assessment/Response: * Mental status: WNL * Risk reported/identified: None Assessment & Plan Assessment & Plan (1) PTSD (post-traumatic stress disorder): Code(s): F43.10 - Post-traumatic stress disorder, unspecified (2) Adjustment disorder: Code(s): F43.20 - Adjustment disorder, unspecified (3) Status post bariatric surgery: Code(s): Z98.84 - Bariatric surgery status Plan No safety concerns or behavioral health issues were identified that require ongoing monitoring at this time. The patient declined additional behavioral health follow-up but is aware of available support and resources should future needs arise. Telehealth Telehealth Telehealth Platform: [facility] Location of provider rendering services: practice address Location of patient: address on file Patient Identification confirmed using: Name, : Yes Telehealth method: video Patient verbally consented to treatment: Yes Patient verbally consented to billing insurance company: Yes Patient informed of any privacy concerns related to visit: Yes Minutes spent on Phone/Video with Pt.: 25 [place] [address] Tele Psytx 30 mins Patient Type Established Diagnoses PTSD (post-traumatic stress disorder) F43.10 Adjustment disorder F43.20 Status post bariatric surgery Z98.84 Time Spent (min) 25
--- OUTSIDE RECORDS SUMMARY | 2025-06-21 16:34 | XMS_ITS | Encounter Summary ---
Author Organization [facility] Address [address] [place] [id number] Phone Care Team Providers Care Keymodule Assembly Supervisor Name Role Phone Janine Crespo MD Unavailable [phone] Pcp, Unknown Primary Care Provider Unavailabl e Encounter Details Date Type Department Care Team (Late st Contact Info) Description 03/11/2023 Procedure Pass [facility], Ct Scan - [address] [address] Social History Tobacco Use Types Packs/Day Years [...] 6:21 AM EDT Ashly Wagoner RN * [place] Suicide Severity Rating Scale (Screener/Recent Self-Report) Question [...] on filedocumented in this encounter Care Teams Keymodule Assembly Supervisor Relationship Specialty Start Date End Date Pcp, Unknown PCP - General 03/11/23 Janine Crespo MD [address] [place] [address], [address] [place] [address] [email or web address] Historical LMR Provider 05/27/17 documented as of this encounter Additional Source Comments The information contained in this document represents components of the legal health record. It is not the complete legal health record.[facility]
== END 2025-06-21 15:49 | disposition home or self-care (01) ==
LOC: HO.HBST 14:47
PROVIDERS: PCP Nurse Practitioner Family; Visit Provider Counselor Mental Health
DX: F43.10 Post-traumatic stress disorder, unspecified (principal); F43.20 Adjustment disorder, unspecified; Z98.84 Bariatric surgery status
CPT/HCPCS: 90832

== ENCOUNTER 2025-06-23 10:52 | Outpatient (AMB) | payer OTHER, SELFPAY ==
--- NOTE | 2025-06-23 10:58 | A.OFFVIS_ITS ---
Intake Visit Reasons: (OV) PO LSG 06/14/25 Allergies tree nut Allergy (Severe, Verified 06/10/25 10:43) Anaphylaxis Medication List - Last Reconciled 06/23/25 by Janeth Joyner CNP melatonin 3 mg PO BEDTIME PRN ondansetron 4 mg PO Q12H pantoprazole 40 mg PO DAILY rizatriptan take 1 tablet at onset of headache; if no relief, may repeat 1 tablet after at least 2 hrs PO 1 month MDD 10mg sertraline 25 mg PO DAILY sucralfate 10 mL PO BID HPI Comments Details: 44 yo woman s/p s/p laparoscopic sleeve gastrectomy and gastropexy 06/14/2025. First visit to start the program was 04/15/2025 and her weight was 279.4 lbs, BMI 49.5. Today, her weight is 237.2 lbs and BMI is 42. This represents a weight loss of 42.2 lbs. Today, she denies any N/V. She had a prior history of GERD, but denies heart burn symptoms. Compliant with diet. No incisional concerns, or S&S of infection. Current meal plan: 3 shakes per day, 8oz, each with 2 scoops of PP 10am-12pm 2-4pm 6-8pm gatorade and water 20oz throughout day Current exercise: walking for exercise, has not reached 300 calories burned yet hates the binder, but wears at home and with sleep. educated does not need with rest/sleep, but wear with activity/exercise. no heavy lifting until 6 weeks postop. [facility] Medical History PTSD (post-traumatic stress disorder) CARMEN (obstructive sleep apnea) Migraines Insomnia Morbid obesity GERD (gastroesophageal reflux disease) Moderate recurrent major depression Generalized anxiety disorder Surgical History History of esophagogastroduodenoscopy (EGD) History of endometrial ablation Hx of breast biopsy Hx of cholecystectomy Family History Mother AA (alcohol abuse) Father HTN (hypertension) Social History Household Members: Family Housing: House Housing Other:: duplex Are you a primary adult daycare coordinator to a significant other at home: No Do you presently have visiting nurse or other home services: No Alcohol intake: former Patient Tobacco Use Status: Former Tobacco user Tobacco use type: Cigarette Years Smoked: 5 e-Cigarette/Vaping Use: Never Used Physical Exam Exam Exam: 4 lap sites with steri strips, CDI. healing well. Mild redness, no ooze, drainage, edema, or S&S of infection. Assessment & Plan Assessment & Plan (1) S/P laparoscopic sleeve gastrectomy: Code(s): Z98.84 - Bariatric surgery status Category: Surgical (2) Morbid obesity: Code(s): E66.01 - Morbid (severe) obesity due to excess calories Category: Medical Plan May shower tomorrow but no bath or submersion of abdomen in water. May start exercise tomorrow (or 1 week postop).? No abdominal exercises x 6 weeks. Abdominal binder for the next 2 weeks with activity or exercise. Continue meal plan per Dr Nava until next f/u in 5 weeks. Reviewed pantoprazole and carafate dosing. Reminded of the pace of drinking 2 mL/min or 1oz per 15 min. Will be emailed link for post op video for review. Follow up: 5 weeks
== END 2025-06-23 11:56 | disposition home or self-care (01) ==
LOC: HO.HBS 10:52
PROVIDERS: PCP Nurse Practitioner Family; Visit Provider Nurse Practitioner
DX: E66.01 Morbid (severe) obesity due to excess calories (principal); Z68.41 Body mass index [BMI] 40.0-44.9, adult; Z90.3 Acquired absence of stomach [part of]; Z98.84 Bariatric surgery status
CPT/HCPCS: 99024